=== PATIENT | male | born 1975 | race Caucasian/White ===

== ENCOUNTER 2022-04-05 16:47 | Inpatient (IN) ==
[2022-04-05] MEDS ORDERED: dilTIAZem HCl 5 MG/ML 5 ML VIAL IV ONE (17:05)
[2022-04-05] MEDS ORDERED: dilTIAZem HCl 5 MG/ML 5 ML VIAL IV STA ×3 (17:08→19:05)
[2022-04-05] MEDS ORDERED: STAT IV Infusion **Titration per Protocol STA (17:08)
--- NOTE | 2022-04-05 17:16 | Emergency Department Note ---
History of Present Illness General Chief complaint: Referred by Doctor Stated complaint: REF BY KATELYN MARTINEZ Time Seen by Provider: 04/05/22 16:54 Source: patient History of Present Illness Provider complaint: Rapid heart rate Onset (ago): unknown Location: chest Pain Consistency: + constant Quality: + other (Tachycardic) Relieved By: + none Exacerbated By: + none Associated symptoms: no chest pain, no cough, no fever/chills, no headaches, no nausea/vomiting, no shortness of breath or no syncope This is a 46-year-old male with history of hypertension presenting with new onset atrial fibrillation. He was at his doctor's office today for routine checkup and was found to have A. fib with RVR and sent here for evaluation. He is completely asymptomatic. He denies any chest discomfort or pain, shortness of breath, lightheadedness or palpitations. He states that he had COVID about a month ago but his symptoms were mild with only a cough and they resolved completely. It was the third time he had COVID-19. He denies any fever, current cough or cold symptoms, abdominal pain, vomiting, diarrhea, leg swelling or pain or urinary symptoms. Allergies Allergy/AdvReac Type Severity Reaction Status Date / Time No Known Allergies Allergy Unverified 05/06/15 12:32 Past Med/Surg History Medical History Hypertension Social History Smoking Status: Never smoker Feels Safe at Home: Yes Review of Systems See HPI for pertinent positives & negatives. and A total of 10 systems reviewed and were otherwise negative Physical Exam Vital Signs Vital Signs - 24 hr 04/05/22 16:48 04/05/22 17:02 04/05/22 17:55 Temperature 36.6 C Temperature Source Temporal Artery Scan Pulse Rate 86 Pulse Rate [Apical] 190 H 150 H Pulse Rhythm [Apical] Irregular Irregular Respiratory Rate 20 20 Respiratory Effort / Characteristics Non-Labored Spontaneous Non-Labored Spontaneous Respiratory Depth Normal Normal Respiratory Pattern Regular Regular Blood Pressure 151/90 H Blood Pressure [Right Arm] 129/92 Blood Pressure Mean 110 Blood Pressure Mean [Right Arm] 104 Blood Pressure Position [Right Arm] Lying Pulse Oximetry 99 95 Oxygen Delivery Method Room Air Room Air Sepsis Recent Fever Within 48 Hours No Sepsis New/Unexplained Change in Mental Status No Sepsis Action Taken by Nursing No Action Required 04/05/22 18:20 04/05/22 18:46 Temperature Temperature Source Pulse Rate Pulse Rate [Apical] 138 H 141 H Pulse Rhythm [Apical] Irregular Irregular Respiratory Rate 20 20 Respiratory Effort / Characteristics Non-Labored Spontaneous Non-Labored Spontaneous Respiratory Depth Normal Normal Respiratory Pattern Regular Blood Pressure Blood Pressure [Right Arm] 129/84 115/89 Blood Pressure Mean Blood Pressure Mean [Right Arm] 99 97 Blood Pressure Position [Right Arm] Pulse Oximetry 95 94 Oxygen Delivery Method Room Air Room Air Sepsis Recent Fever Within 48 Hours Sepsis New/Unexplained Change in Mental Status Sepsis Action Taken by Nursing Constitutional: Vital signs reviewed. Eyes: Pupils are equal round reactive to light. Conjunctiva are noninjected. ENT: Pharynx is clear without erythema or exudate. Mucous membranes are moist. Neck supple without meningeal signs. Respiratory: Clear to auscultation bilaterally. Breath sounds are equal bilaterally. Cardiovascular: Tachycardic. Heart rate 174 GI: Soft, nondistended and nontender. Bowel sounds are present. Musculoskeletal: No peripheral edema. No lower extremity tenderness. Integumentary: No cyanosis. or jaundice. Neurological: The patient is awake and alert. No focal deficits. Psychiatric: Normal affect. Not anxious appearing. Course Administered Medications Diltiazem HCl 125 mg/ Dextrose 125 mls @ 15 mls/hr IV .[id number] [facility]; Protocol Stop: 05/05/22 17:14 Last Titration: 04/05/22 18:46 Dose: 15 mg/hr, 15 mls/hr Documented by: [id number] Cosigned by: [id number] Titration: 04/05/22 18:15 Dose: 10 mg/hr, 10 mls/hr Documented by: [id number] Cosigned by: [id number] Admin: 04/05/22 17:49 Dose: 5 mg/hr, 5 mls/hr Documented by: [id number] Cosigned by: [id number] Discontinued Medications Diltiazem HCl (Diltiazem Hcl 5 Mg/Ml 5 Ml Vial) Confirm Administered Dose 25 mg IV .STK-MED ONE Stop: 04/05/22 17:06 Last Admin: 04/05/22 17:11 Dose: 10 mg Documented by: [id number] Cosigned by: [id number] Diltiazem HCl (Diltiazem Hcl 5 Mg/Ml 5 Ml Vial) 10 mg IV NOW STA Stop: 04/05/22 17:09 Last Admin: 04/05/22 17:11 Dose: Not Given Documented by: [id number] Diltiazem HCl (Diltiazem Hcl 5 Mg/Ml 5 Ml Vial) 10 mg IV NOW STA Stop: 04/05/22 17:53 Last Admin: 04/05/22 17:53 Dose: 10 mg Documented by: [id number] Cosigned by: [id number] Miscellaneous (Stat Iv Infusion Titration Per Protocol) 1 ea N/A NOW STA Stop: 04/05/22 17:09 Last Admin: 04/05/22 18:16 Dose: Not Given Documented by: [id number] Critical Care Time Critical Care Time: Yes Total Critical Care Time: 40 I have personally spent approximately 40 minutes of critical care time in the direct management of this patient. This includes bedside care, interpretation of diagnostic studies, and testing, discussion with consultants, patient, and family members, and other required patient management activities. These minutes are in excess of all separately billable procedures. Medical Decision Making Differential Diagnosis Dysrhythmia, atrial fibrillation, A. fib with RVR, metabolic derangement, electrolyte abnormality, ACS Medical Records Attestation: I reviewed the patient's medical records. I did perform a limited focused review of portions of the patient's old chart on the electronic medical record. The patient has had no recent pertinent visits to this hospital. Home Medications Current Medication List: was personally reviewed by me Laboratory Data Attestation: I reviewed the patient's lab results. Result diagrams: 04/05/22 17:05 04/05/22 18:20 Lab Results 04/05/22 04/05/22 04/05/22 Range/Units 15:03 17:05 17:05 WBC 9.53 (4.8-10.8) K/uL RBC 4.46 L (4.7-6.1) M/uL Hgb 14.0 (14.0-18.0) g/dL Hct 40.8 L (42-52) % MCV 91.5 (80-100) fL MCH 31.4 (25-34) pg MCHC 34.3 (32-36) g/dL RDW Std Deviation 41.8 (36.4-46.3) fL RDW Coeff of Gerardo 12.4 (11.5-14.5) % Plt Count 140 (130-400) K/uL MPV 10.5 H (7.4-10.4) fL Immature Gran % (Auto) 0.2 % Neut % (Auto) 63.3 % Lymph % (Auto) 25.8 % [place] % (Auto) 8.3 % Eos % (Auto) 2.2 % Baso % (Auto) 0.2 % Neut # (Auto) 6.03 (1.4-6.5) K/uL Lymph # (Auto) 2.46 (1.2-3.4) K/uL [place] # (Auto) 0.79 H (0.11-0.59) K/uL Eos # (Auto) 0.21 (0-0.5) K/uL Baso # (Auto) 0.02 (0-0.2) K/uL Immature Gran # (Auto) 0.02 (0.00-0.02) K/uL Sodium 134 L (136-145) mmol/L Potassium TNP Chloride 103 (98-107) mmol/L Carbon Dioxide 23 (21-32) mmol/L Anion Gap 8 (3-11) BUN 10 (6-23) mg/dl Creatinine 0.76 (0.6-1.4) mg/dl Est Cr Clr Drug Dosing 164.4 ml/min Est GFR ( Amer) 125.0 ml/min Est GFR (Non-Af Amer) 107.9 ml/min BUN/Creatinine Ratio 13.2 (10-20) Glucose 92 (70-99(Fasting)) mg/dl Calcium 9.1 (8.5-10.1) mg/dl Magnesium 1.9 (1.7-2.4) mg/dl Total Bilirubin 0.9 (0.2-1.0) mg/dl AST TNP ALT 42 (7-52) U/L Alkaline Phosphatase 67 (34-104) U/L Troponin I High Sens 11.1 (0-20) pg/ml Total Protein 7.5 (6.0-8.3) gm/dl Albumin 4.1 (3.4-5.0) gm/dl Globulin 3.4 (2.5-4.0) gm/dl Albumin/Globulin Ratio 1.2 (0.9-2) TSH (0.300-4.500) uIu/ml SARS-CoV-2, RNA, NAAT NEGATIVE (NEGATIVE) 04/05/22 04/05/22 Range/Units 17:05 18:20 WBC (4.8-10.8) K/uL RBC (4.7-6.1) M/uL Hgb (14.0-18.0) g/dL Hct (42-52) % MCV (80-100) fL MCH (25-34) pg MCHC (32-36) g/dL RDW Std Deviation (36.4-46.3) fL RDW Coeff of Gerardo (11.5-14.5) % Plt Count (130-400) K/uL MPV (7.4-10.4) fL Immature Gran % (Auto) % Neut % (Auto) % Lymph % (Auto) % [place] % (Auto) % Eos % (Auto) % Baso % (Auto) % Neut # (Auto) (1.4-6.5) K/uL Lymph # (Auto) (1.2-3.4) K/uL [place] # (Auto) (0.11-0.59) K/uL Eos # (Auto) (0-0.5) K/uL Baso # (Auto) (0-0.2) K/uL Immature Gran # (Auto) (0.00-0.02) K/uL Sodium (136-145) mmol/L Potassium 3.8 Chloride (98-107) mmol/L Carbon Dioxide (21-32) mmol/L Anion Gap (3-11) BUN (6-23) mg/dl Creatinine (0.6-1.4) mg/dl Est Cr Clr Drug Dosing ml/min Est GFR ( Amer) ml/min Est GFR (Non-Af Amer) ml/min BUN/Creatinine Ratio (10-20) Glucose (70-99(Fasting)) mg/dl Calcium (8.5-10.1) mg/dl Magnesium (1.7-2.4) mg/dl Total Bilirubin (0.2-1.0) mg/dl AST 33 ALT (7-52) U/L Alkaline Phosphatase (34-104) U/L Troponin I High Sens (0-20) pg/ml Total Protein (6.0-8.3) gm/dl Albumin (3.4-5.0) gm/dl Globulin (2.5-4.0) gm/dl Albumin/Globulin Ratio (0.9-2) TSH 1.830 (0.300-4.500) uIu/ml SARS-CoV-2, RNA, NAAT (NEGATIVE) Imaging Data Radiologist's Impression: Chest X-Ray 04/05/22 17:08 XR chest 1V portable CLINICAL HISTORY: Dysrhythmia COMPARISON STUDY: No previous studies for comparison. FINDINGS: Lung volumes are normal. Lungs are clear. There is no pneumothorax or pleural effusion. There is moderate enlargement of the cardiac silhouette. Mediastinal contours are normal. There is no evidence for pulmonary edema. IMPRESSION: No acute cardiopulmonary findings. Moderate enlargement of the cardiac silhouette. ACT 112: Negative or not required by law. Electronically signed by: Robson Morrow M.D. 04/05/2022 5:33 PM ECG Data Attestation: I personally reviewed and interpreted this ECG as follows: Indication: + tachycardia Rate (beats per minute): 164 Rhythm: + atrial fibrillation ECG Intervals/blocks: + Incomplete right bundle branch block ECG ST segments: + Nonspecific ST abnormalities ECG Findings: + PVCs Comparison ECG Date: no prior available MDM Narrative I did evaluate the patient as noted above. The patient is asymptomatic but he is coming in with new onset atrial fibrillation with RVR. His heart rate has been up to 190 here. IV access was established. I did place an order for con tinuous cardiac monitoring. The monitor showed atrial fibrillation with RVR at a rate of 164. I did order and personally review the patient's 12-lead EKG as described above. He has A. fib with an RVR with nonspecific ST-T wave changes. I did order and personally reviewed the images of the patient's chest x-ray as described above. Chest x-ray is unremarkable. I did order and review the patient's blood work as noted in the electronic medical record. CBC is unremarkable without leukocytosis or anemia. Electrolytes demonstrate a sodium of 134 but are otherwise unremarkable. Troponin is negative. TSH is within normal limits. Screening for COVID is negative. I did treat the patient with a bolus of Cardizem IV. He was then started on a continuous drip of Cardizem IV. His heart rate did improve significantly but he continued to have tachycardia and was given 2 more boluses of Cardizem IV. He will be hospitalized for further care and evaluation. I did discuss case with the hospitalist and gearcase assembler. He will require further evaluation including cardiology consultation as well as echocardiogram. [id number] 2 score is currently 1 and anticoagulation will be deferred to the inpatient team. Resident Physician Supervision Note: I did perform an independent evaluation and examination of this patient as described. I also saw this patient in conjunction with the resident, Dr. Diaz, and guided management for the patient. Impression & Plan Atrial fibrillation with rapid ventricular response, New onset a-fib Discharge Plan Visit Data Chief Complaint: Referred by Doctor Stated Complaint: REF BY KATELYN MARTINEZ ED Provider: Rohit Rodriguez ED Midlevel Provider: Yamilet Diaz Discharge Problem: Atrial fibrillation with rapid ventricular response, New onset a-fib Forms Stand Alone Forms: [facility] Referrals Referrals: Yuki Correia MD [Primary Care Provider] -
--- NOTE | 2022-04-05 17:34 | XRay Report ---
XR chest 1V portable CLINICAL HISTORY: Dysrhythmia COMPARISON STUDY: No previous studies for comparison. FINDINGS: Lung volumes are normal. Lungs are clear. There is no pneumothorax or pleural effusion. The re is moderate enlargement of the cardiac silhouette. Mediastinal contours are normal. There is no ev idence for pulmonary edema. IMPRESSION: No acute cardiopulmonary findings. Moderate enlargement of the cardiac silhouette. ACT 112: Negative or not required by law. Electronically signed by: Robson Morrow M.D. 04/05/2022 5:33 PM
[2022-04-05 17:36] LABS: Basophils # (auto) 0.02 K/uL (0-0.2); Basophils % (auto) 0.2 %; Eosinophils # (auto) 0.21 K/uL (0-0.5); Eosinophils % (auto) 2.2 %; Hematocrit (blood only) 40.8 % (42-52); Immature Granulocytes # (auto) 0.02 K/uL (0.00-0.02); Immature Granulocytes % (auto) 0.2 %; Lymphocytes # (auto) 2.46 K/uL (1.2-3.4); Lymphocytes % (auto) 25.8 %; Mean Corpuscular Hemoglobin 31.4 pg (25-34); Mean Corpuscular Hgb Conc 34.3 g/dL (32-36); Mean Corpuscular Volume 91.5 fL (80-100); Mean Platelet Volume 10.5 fL (7.4-10.4); Monocytes # (auto) 0.79 K/uL (0.11-0.59); Monocytes % (auto) 8.3 %; Neutrophils # (auto) 6.03 K/uL (1.4-6.5); Neutrophils % (auto) 63.3 %; Platelet Count 140 K/uL (130-400); RDW Coefficient of Variation 12.4 % (11.5-14.5); RDW Standard Deviation 41.8 fL (36.4-46.3); Red Blood Count 4.46 M/uL (4.7-6.1); White Blood Count 9.53 K/uL (4.8-10.8)
[2022-04-05] MEDS: dilTIAZem HCL 125 MG in DEXTROSE 5% 100 ML IV SCH (17:49)
[2022-04-05 18:13] LABS: Alanine Aminotransferase 42 U/L (7-52); Albumin Globulin Ratio 1.2 (0.9-2); Albumin Level 4.1 gm/dl (3.4-5.0); Alkaline Phosphatase 67 U/L (34-104); Anion Gap 8 (3-11); BUN Creatinine Ratio 13.2 (10-20); Bilirubin,Total 0.9 mg/dl (0.2-1.0); Blood Urea Nitrogen 10 mg/dl (6-23); Calcium 9.1 mg/dl (8.5-10.1); Carbon Dioxide 23 mmol/L (21-32); Chloride 103 mmol/L (98-107); Creatinine Clr Calc Pharmacy 164.4 ml/min; Est GFR (Non-African American) 107.9 ml/min; Globulin 3.4 gm/dl (2.5-4.0); Glucose 92 mg/dl (70-99(Fasting)); Magnesium 1.9 mg/dl (1.7-2.4); Sodium 134 mmol/L (136-145); Total Protein 7.5 gm/dl (6.0-8.3)
[2022-04-05 18:15] LABS: Troponin I High Sensitivity 11.1 pg/ml (0-20)
[2022-04-05 18:52] LABS: Potassium 3.8 mmol/L (3.5-5.1)
[2022-04-05] MEDS ORDERED: POTASSIUM CHLORIDE CRTAB 20 MEQ TABCR PO STA (19:05)
[2022-04-05] MEDS ORDERED: LACTATED RINGER'S 1,000 ML IV ONE (19:06)
[2022-04-05] MEDS ORDERED: METOPROLOL TARTRATE 25 MG TAB PO STA (19:07)
[2022-04-05] MEDS ORDERED: MAGNESIUM SULFATE / D5W 1 GM/100 ML BAG IV ONE (19:15)
[2022-04-05 19:43] LABS: Partial Thromboplastin Ratio 0.9; Partial Thromboplastin Time 24.9 Seconds (21.0-31.0)
--- NOTE | 2022-04-05 19:59 | History & Physical Report ---
Date of Service April 05, 2022 Assessment & Plan (1) New onset a-fib: Plan: ? Alcohol abuse as precipitant ? Underlying LIZ hypertension, stable PCU Utilize Lopressor in place of patient's Coreg for better rate control IV heparin for thromboembolic prophylaxis TTE, Cardiology consult Re: New onset A. fib Outpatient sleep study YAJAIRA S, DT precautions DVT prophylaxis. IV heparin Full code Patient requesting updates from providers. Ms. Ana Laura Roberts, contact #[phone]. Text document was generated using [employer] voice recognition software. It may contain grammatical or spelling errors. Kindly contact undersigned for clarification of any documentation item in question. History of Present Illness Chief Complaint: Abnormal heartbeat Primary Care Provider: Yuki Correia MD History obtained from patient, family, and records. Medical history significant for hypertension, prolonged QT syndrome, daily alcohol intake. Patient started by PCP on lisinopril for additional blood pressure control a few months ago. A month after taking medication, patient developed dry cough symptoms described as a tickle in the throat. Patient did not take lisinopril this morning prior to going to PCPs office for follow-up visit. Lisinopril switched to losartan. Heartbeat noted to be irregular on auscultation by provider. Patient denies chest pain, SOB. No unusual stress at home. Daily alcohol intake, occasionally heavy on the weekends. Snoring during sleep as per with occasional apneic episodes. Outpatient EKG showed A. fib. Patient directed to ER for evaluation of abnormal heartbeat. IV Cardizem infusion initiated at the ER. 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 Allergies Allergy/AdvReac Type Severity Reaction Status Date / Time lisinopril AdvReac Intermediate Cough Verified 04/05/22 19:26 Home Medications Medication Instructions Recorded Confirmed Type carvedilol 3.125 mg tablet 3.125 mg PO BID 04/05/22 04/05/22 History cholecalciferol (vitamin D3) 25 0 mcg PO DAILY 04/05/22 04/05/22 History mcg (1,000 unit) capsule (Vitamin D3) hydrochlorothiazide 25 mg tablet 25 mg PO DAILY 04/05/22 04/05/22 History losartan 25 mg tablet 25 mg PO DAILY 04/05/22 04/05/22 History vitamin E 400 unit capsule 0 unit PO DAILY 04/05/22 04/05/22 History Past Med/Surg History Medical History Hypertension Social History Smoking Status: Never smoker Hx Alcohol Use: Yes Alcohol type: beer Hx Substance Use: No Preferred Language: [place] Communication Ability: Effective Emergency Department Director Required: No Beliefs That Will Affect Care: None Current Living Situation: Spouse Other Information That Helps Us Care for You: No Feels Safe at Home: Yes Safety Concerns: Feels Safe At This Time Assistive Devices: None Review of Systems Review of Systems: As per HPI, all other systems reviewed and negative Physical Exam Physical Exam: GENERAL: Comfortable, pleasant, morbidly obese, no respiratory distress SKIN: Normal color, warm HEENT: [place] palpebral conjunctivae, no ptosis, moist buccal mucosa NECK : Supple, short neck no tenderness CHEST : CTA, no tenderness HEART : Irregular, no obvious murmurs ABDOMEN: Some distention, nontender EXTREMITIES : Minimal LE swelling without tenderness, no other conspicuous deformities noted NEUROLOGIC : Coherent, no facial asymmetry, no other gross focality Results & Data Results & Data ([facility]) Vital Signs (Past 12 Hours) Vital Signs Temp Pulse Pulse Resp BP BP Pulse Ox 04/05/22 18:46 141 H 20 115/89 94 04/05/22 18:20 138 H 20 129/84 95 04/05/22 17:55 150 H 20 129/92 95 04/05/22 17:02 190 H 04/05/22 16:48 36.6 C 86 20 151/90 H 99 Laboratory Results Laboratory Results WBC 9.53 K/uL (4.8-10.8) 04/05/22 17:05 RBC 4.46 M/uL (4.7-6.1) L 04/05/22 17:05 Hgb 14.0 g/dL (14.0-18.0) 04/05/22 17:05 Hct 40.8 % (42-52) L 04/05/22 17:05 MCV 91.5 fL (80-100) 04/05/22 17:05 MCH 31.4 pg (25-34) 04/05/22 17:05 MCHC 34.3 g/dL (32-36) 04/05/22 17:05 RDW Std Deviation 41.8 fL (36.4-46.3) 04/05/22 17:05 RDW Coeff of Gerardo 12.4 % (11.5-14.5) 04/05/22 17:05 Plt Count 140 K/uL (130-400) 04/05/22 17:05 MPV 10.5 fL (7.4-10.4) H 04/05/22 17:05 Immature Gran % (Auto) 0.2 % 04/05/22 17:05 Neut % (Auto) 63.3 % 04/05/22 17:05 Lymph % (Auto) 25.8 % 04/05/22 17:05 [place] % (Auto) 8.3 % 04/05/22 17:05 Eos % (Auto) 2.2 % 04/05/22 17:05 Baso % (Auto) 0.2 % 04/05/22 17:05 Neut # (Auto) 6.03 K/uL (1.4-6.5) 04/05/22 17:05 Lymph # (Auto) 2.46 K/uL (1.2-3.4) 04/05/22 17:05 [place] # (Auto) 0.79 K/uL (0.11-0.59) H 04/05/22 17:05 Eos # (Auto) 0.21 K/uL (0-0.5) 04/05/22 17:05 Baso # (Auto) 0.02 K/uL (0-0.2) 04/05/22 17:05 Immature Gran # (Auto) 0.02 K/uL (0.00-0.02) 04/05/22 17:05 APTT 24.9 Seconds (21.0-31.0) 04/05/22 18:21 PTT Ratio 0.9 04/05/22 18:21 Sodium 134 mmol/L (136-145) L 04/05/22 17:05 Potassium 3.8 mmol/L (3.5-5.1) 04/05/22 18:20 Chloride 103 mmol/L (98-107) 04/05/22 17:05 Carbon Dioxide 23 mmol/L (21-32) 04/05/22 17:05 Anion Gap 8 (3-11) 04/05/22 17:05 BUN 10 mg/dl (6-23) 04/05/22 17:05 Creatinine 0.76 mg/dl (0.6-1.4) 04/05/22 17:05 Est Cr Clr Drug Dosing 164.4 ml/min 04/05/22 17:05 Est GFR ( Amer) 125.0 ml/min 04/05/22 17:05 Est GFR (Non-Af Amer) 107.9 ml/min 04/05/22 17:05 BUN/Creatinine Ratio 13.2 (10-20) 04/05/22 17:05 Glucose 92 mg/dl (70-99(Fasting)) 04/05/22 17:05 Calcium 9.1 mg/dl (8.5-10.1) 04/05/22 17:05 Magnesium 1.9 mg/dl (1.7-2.4) 04/05/22 17:05 Total Bilirubin 0.9 mg/dl (0.2-1.0) 04/05/22 17:05 AST 33 U/L (13-39) 04/05/22 18:20 ALT 42 U/L (7-52) 04/05/22 17:05 Alkaline Phosphatase 67 U/L (34-104) 04/05/22 17:05 Troponin I High Sens 11.1 pg/ml (0-20) 04/05/22 17:05 Total Protein 7.5 gm/dl (6.0-8.3) 04/05/22 17:05 Albumin 4.1 gm/dl (3.4-5.0) 04/05/22 17:05 Globulin 3.4 gm/dl (2.5-4.0) 04/05/22 17:05 Albumin/Globulin Ratio 1.2 (0.9-2) 04/05/22 17:05 TSH 1.830 uIu/ml (0.300-4.500) 04/05/22 17:05 SARS-CoV-2, RNA, NAAT NEGATIVE (NEGATIVE) 04/05/22 15:03 Impressions Chest X-Ray 04/05/22 17:08 XR chest 1V portable CLINICAL HISTORY: Dysrhythmia COMPARISON STUDY: No previous studies for comparison. FINDINGS: Lung volumes are normal. Lungs are clear. There is no pneumothorax or pleural effusion. There is moderate enlargement of the cardiac silhouette. Mediastinal contours are normal. There is no evidence for pulmonary edema. IMPRESSION: No acute cardiopulmonary findings. Moderate enlargement of the cardiac silhouette. ACT 112: Negative or not required by law. Electronically signed by: Robson Morrow M.D. 04/05/2022 5:33 PM Diagnostic Findings EKG as per my interpretation : Rate 160, A. fib, normal axis, incomplete RV, with abnormalities lateral leads, PVCs Code Status & VTE Plan VTE Prophylaxis Plan VTE Prophylaxis will be ordered: Yes
[2022-04-05] MEDS ORDERED: PROMETHAZINE HCL 12.5 MG in SODIUM CHLORIDE 0.9% 50 ML IV PRN (22:03)
[2022-04-05] MEDS ORDERED: LORazepam 0.5 MG in SYRINGE 0.25 ML IV PRN (22:03)
[2022-04-05] MEDS ORDERED: oxyCODONE HCL IR 5 MG TAB (IMMEDIATE RELEASE) PO PRN (22:03)
[2022-04-05] MEDS ORDERED: NITROGLYCERIN SL 0.4 MG/TAB TAB SL PRN (22:03)
[2022-04-05] MEDS ORDERED: ACETAMINOPHEN 325 MG TAB PO PRN (22:03)
[2022-04-05] MEDS ORDERED: THIAMINE HCL 100 MG in SYRINGE 9 ML IV STA (22:03)
[2022-04-05] MEDS: HEPARIN SODIUM/DEXTROSE 25,000 UNITS/500 ML BAG IV SCH (22:05)
[2022-04-05] MEDS: Heparin IV Adult Wt-Based Standard *NO* Bolus Protocol IV SCH ×2 (22:32)
[2022-04-06] MEDS: dilTIAZem HCL 125 MG in DEXTROSE 5% 100 ML IV SCH (02:13)
[2022-04-06 04:38] LABS: Basophils # (auto) 0.03 K/uL (0-0.2); Basophils % (auto) 0.3 %; Eosinophils % (auto) 3.2 %; Hematocrit (blood only) 37.6 % (42-52); Hemoglobin 12.7 g/dL (14.0-18.0); Immature Granulocytes # (auto) 0.01 K/uL (0.00-0.02); Immature Granulocytes % (auto) 0.1 %; Lymphocytes # (auto) 3.48 K/uL (1.2-3.4); Lymphocytes % (auto) 37.7 %; Mean Corpuscular Hemoglobin 31.3 pg (25-34); Mean Corpuscular Hgb Conc 33.8 g/dL (32-36); Mean Corpuscular Volume 92.6 fL (80-100); Monocytes % (auto) 5.4 %; Neutrophils # (auto) 4.92 K/uL (1.4-6.5); Neutrophils % (auto) 53.3 %; Platelet Count 121 K/uL (130-400); RDW Coefficient of Variation 12.5 % (11.5-14.5); RDW Standard Deviation 42.2 fL (36.4-46.3); Red Blood Count 4.06 M/uL (4.7-6.1); White Blood Count 9.24 K/uL (4.8-10.8)
[2022-04-06 04:53] LABS: Partial Thromboplastin Ratio 1.3; Partial Thromboplastin Time 35.3 Seconds (21.0-31.0)
[2022-04-06 04:57] LABS: BUN Creatinine Ratio 13.4 (10-20); Calcium 8.6 mg/dl (8.5-10.1); Creatinine Clr Calc Pharmacy 153.6 ml/min; Est GFR (African American) 121.2 ml/min; Est GFR (Non-African American) 104.6 ml/min; Potassium 3.9 mmol/L (3.5-5.1)
[2022-04-06] MEDS ORDERED: HEPARIN SOD (PORCINE) 1000 UNIT/ML IV ONE (05:15)
[2022-04-06] MEDS: THIAMINE HCL 100 MG TAB PO SCH (08:14)
[2022-04-06] MEDS: FOLIC ACID 1 MG TAB PO SCH (08:15)
[2022-04-06] MEDS: MULTIVITAMIN TAB PO SCH (08:15)
[2022-04-06] MEDS: LOSARTAN POTASSIUM 25 MG TAB PO SCH (08:15)
[2022-04-06] MEDS ORDERED: METOPROLOL TARTRATE 25 MG TAB PO SCH (09:00)
[2022-04-06] MEDS ORDERED: METOPROLOL TARTRATE 25 MG TAB PO ONE (09:30)
[2022-04-06] MEDS ORDERED: METOPROLOL TARTRATE 1 MG/ML VIAL IV PRN (09:32)
--- NOTE | 2022-04-06 09:32 | Cardiology Consultation ---
Date of Consultation April 06, 2022 Assessment & Plan (1) Atrial fibrillation with rapid ventricular response: (2) Hypertension: (3) Work related injury: (4) New onset a-fib: The patient is currently in a rate controlled atrial fibrillation and is completely asymptomatic. I am uncertain as to how long the patient was in the atrial fibrillation could have been days or weeks. Therefore, I think that we need to maintain full anticoagulation and if we proceed to rhythm control by cardioversion and/or medications then I think he should have a SID completed to exclude left atrial appendage thrombus. If there is no contraindication by SID then the patient can have a cardioversion before discharge. If he is not easily cardioverted then he will have to be started on an antiarrhythmic medication to maintain sinus rhythm. History of Present Illness Attending Physician: Kaiser Navas MD History of Present Illness This is a 46-year-old male patient with no prior history of heart disease. He went into see his primary care physician due to a cough that he felt was from his lisinopril. While he was there he was noted to have an irregular fast heart rate and further investigation revealed atrial fibrillation with RVR. The patient was completely asymptomatic in regard to this arrhythmia. He has had no recent shortness of breath and denies orthopnea. No chest pain. No dizziness or lightheadedness.He is a non-smoker. No previous history of diabetes. He drinks a case of beer per week. His has been encouraging him to be tested for sleep apnea due to snoring and tiredness throughout the day. 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 Allergies Allergy/AdvReac Type Severity Reaction Status Date / Time lisinopril AdvReac Intermediate Cough Verified 04/05/22 19:26 Home Medications Medication Instructions Recorded Confirmed Type carvedilol 3.125 mg tablet 3.125 mg PO BID 04/05/22 04/05/22 History cholecalciferol (vitamin D3) 25 0 mcg PO DAILY 04/05/22 04/05/22 History mcg (1,000 unit) capsule (Vitamin D3) hydrochlorothiazide 25 mg tablet 25 mg PO DAILY 04/05/22 04/05/22 History losartan 25 mg tablet 25 mg PO DAILY 04/05/22 04/05/22 History vitamin E 400 unit capsule 0 unit PO DAILY 04/05/22 04/05/22 History Patient History Medical History Hypertension Social History Smoking Status: Never smoker Hx Alcohol Use: Yes Alcohol type: beer Hx Substance Use: No Preferred Language: Slovenian Communication Ability: Effective Director Of Scientific Research Required: No Beliefs That Will Affect Care: None Current Living Situation: Spouse Other Information That Helps Us Care for You: No Feels Safe at Home: Yes Safety Concerns: Feels Safe At This Time Assistive Devices: None Review of Systems Review of Systems: Review of Systems: See HPI for pertinent positives. All other 10 point review of systems are negative. Physical Exam Physical Exam: General: no acute distress and stated age Head: normocephalic, no masses, lesions, tenderness or abnormalities Eyes: conjunctiva are pink and non-injected, sclera clear Neck: supple, no adenopathy, no bruits, normal jugular venous pulse, no hepatojugular reflux Chest: normal shape and normal respiratory effort Lungs: clear to auscultation and percussion Cardiac Exam: - regular rate & rhythm, no murmurs gallops or rubs - normal S1, normal S2 Pulses: 2(+) throughout Abdomen: abdomen soft, non-tender, no abnormal masses and no hepatosplenomegaly Musculoskeletal: no gait disturbance, no joint inflammation, no deforming arthritis Extremities: no edema and no cyanosis Neuro: grossly normal exam Results & Data ([facility]) Vital Signs (Past 12 Hours) Vital Signs Temp Pulse Pulse Resp BP BP BP 04/06/22 07:36 36.7 C 87 20 142/99 H 04/06/22 04:29 36.8 C 94 H 16 137/89 04/05/22 22:05 37.4 C 112 H 99 H 18 130/90 04/05/22 21:30 103 H 101/81 Pulse Ox 04/06/22 07:36 97 04/06/22 04:29 97 04/05/22 22:05 97 04/05/22 21:30 96 Laboratory Results Laboratory Results - last 24 hr 04/05/22 04/05/22 04/05/22 15:03 17:05 17:05 WBC 9.53 RBC 4.46 L Hgb 14.0 Hct 40.8 L MCV 91.5 MCH 31.4 MCHC 34.3 RDW Std Deviation 41.8 RDW Coeff of Gerardo 12.4 Plt Count 140 MPV 10.5 H Immature Gran % (Auto) 0.2 Neut % (Auto) 63.3 Lymph % (Auto) 25.8 [place] % (Auto) 8.3 Eos % (Auto) 2.2 Baso % (Auto) 0.2 Neut # (Auto) 6.03 Lymph # (Auto) 2.46 [place] # (Auto) 0.79 H Eos # (Auto) 0.21 Baso # (Auto) 0.02 Immature Gran # (Auto) 0.02 APTT PTT Ratio Sodium 134 L Potassium TNP Chloride 103 Carbon Dioxide 23 Anion Gap 8 BUN 10 Creatinine 0.76 Est Cr Clr Drug Dosing 164.4 Est GFR ( Amer) 125.0 Est GFR (Non-Af Amer) 107.9 BUN/Creatinine Ratio 13.2 Glucose 92 Calcium 9.1 Magnesium 1.9 Total Bilirubin 0.9 AST TNP ALT 42 Alkaline Phosphatase 67 Troponin I High Sens 11.1 Total Protein 7.5 Albumin 4.1 Globulin 3.4 Albumin/Globulin Ratio 1.2 TSH SARS-CoV-2, RNA, NAAT NEGATIVE 04/05/22 04/05/22 04/05/22 17:05 18:20 18:21 WBC RBC Hgb Hct MCV MCH MCHC RDW Std Deviation RDW Coeff of Gerardo Plt Count MPV Immature Gran % (Auto) Neut % (Auto) Lymph % (Auto) [place] % (Auto) Eos % (Auto) Baso % (Auto) Neut # (Auto) Lymph # (Auto) [place] # (Auto) Eos # (Auto) Baso # (Auto) Immature Gran # (Auto) APTT 24.9 PTT Ratio 0.9 Sodium Potassium 3.8 Chloride Carbon Dioxide Anion Gap BUN Creatinine Est Cr Clr Drug Dosing Est GFR ( Amer) Est GFR (Non-Af Amer) BUN/Creatinine Ratio Glucose Calcium Magnesium Total Bilirubin AST 33 ALT Alkaline Phosphatase Troponin I High Sens Total Protein Albumin Globulin Albumin/Globulin Ratio TSH 1.830 SARS-CoV-2, RNA, NAAT 04/06/22 04/06/22 04/06/22 04:14 04:14 04:14 WBC 9.24 RBC 4.06 L Hgb 12.7 L Hct 37.6 L MCV 92.6 MCH 31.3 MCHC 33.8 RDW Std Deviation 42.2 RDW Coeff of Gerardo 12.5 Plt Count 121 L MPV 10.0 Immature Gran % (Auto) 0.1 Neut % (Auto) 53.3 Lymph % (Auto) 37.7 [place] % (Auto) 5.4 Eos % (Auto) 3.2 Baso % (Auto) 0.3 Neut # (Auto) 4.92 Lymph # (Auto) 3.48 H [place] # (Auto) 0.50 Eos # (Auto) 0.30 Baso # (Auto) 0.03 Immature Gran # (Auto) 0.01 APTT 35.3 H PTT Ratio 1.3 Sodium 135 L Potassium 3.9 Chloride 103 Carbon Dioxide 26 Anion Gap 6 BUN 11 Creatinine 0.82 Est Cr Clr Drug Dosing 153.6 Est GFR ( Amer) 121.2 Est GFR (Non-Af Amer) 104.6 BUN/Creatinine Ratio 13.4 Glucose 103 H Calcium 8.6 Magnesium Total Bilirubin AST ALT Alkaline Phosphatase Troponin I High Sens Total Protein Albumin Globulin Albumin/Globulin Ratio TSH SARS-CoV-2, RNA, NAAT Medications Administered Current Inpatient Medications Acetaminophen (Acetaminophen 325 Mg Tab) 650 mg PO Q4H PRN PRN Reason: Pain or Fever Stop: 05/05/22 22:02 Folic Acid (Folic Acid 1 Mg Tab) 1 mg PO [facility] Stop: 05/06/22 08:59 Last Admin: 04/06/22 08:15 Dose: 1 mg Documented by: Heparin Sodium/Dextrose (Heparin Sodium/Dextrose) 25,000 units in 500 mls @ 39 mls/hr IV .[id number]; Protocol Stop: 05/05/22 20:14 Last Titration: 04/06/22 05:00 Dose: 1,950 units/hr, 39 mls/hr Documented by: Lorazepam 0.5 mg/ Syringe 0.5 mls @ 2 mls/min IV Q4H PRN PRN Reason: Anxiety Stop: 05/05/22 22:02 Promethazine HCl 12.5 mg/ (Sodium Chloride) 50.5 mls @ 202 mls/hr IV Q6H PRN PRN Reason: Nausea And Vomiting Stop: 05/05/22 22:02 Losartan Potassium (Losartan Potassium 25 Mg Tab) [facility]: 05/06/22 08:59 Last Admin: 04/06/22 08:15 Dose: 25 mg Documented by: Metoprolol Tartrate (Metoprolol Tartrate 50 Mg Tab) 50 mg PO BID [facility] Stop: 05/06/22 09:29 Multivitamins (Multivitamin Tab) [facility]: 05/06/22 08:59 Last Admin: 04/06/22 08:15 Dose: 1 tab Documented by: Nitroglycerin (Nitroglycerin Sl 0.4 Mg/Tab Tab) 0.4 mg SL UD PRN PRN Reason: Chest Pain Stop: 05/05/22 22:02 Oxycodone HCl (Oxycodone Hcl Ir 5 Mg Tab (Immediate Release)) 5 mg PO Q4H PRN PRN Reason: Pain Stop: 04/19/22 22:02 Thiamine HCl (Thiamine Hcl 100 Mg Tab) 100 mg PO [facility] Stop: 05/06/22 08:59 Last Admin: 04/06/22 08:14 Dose: 100 mg Documented by:
--- NOTE | 2022-04-06 10:32 | Hospitalist Progress Note ---
Date of Service April 06, 2022 Assessment & Plan (1) Atrial fibrillation with rapid ventricular response: (2) New onset a-fib: Plan: 1) New onset a-fib: Plan: ? Alcohol abuse as precipitant ? Underlying LIZ hypertension, stable PCU Utilize Lopressor in place of patient's Coreg for better rate control IV heparin for thromboembolic prophylaxis TTE, Cardiology consult Re: New onset A. fib Seen by cardiology, likely plan for SID, and cardioversion Outpatient sleep study YAJAIRA S, DT precautions DVT prophylaxis. IV heparin Full code Patient -Mrs. Ana Laura Roberts, contact #[phone]. Admission and Anticipated Discharge Date Admission Date: April 05, 2022 Subjective Patient seen in follow-up of new onset A. fib Currently laying in bed, in no acute distress, on IV heparin Denies any palpitations, chest pain, shortness of breath Also denies any abdominal pain, nausea vomiting, blood in the stool Seen by cardiology, likely plan for SID, and cardioversion Review of Systems Review of Systems: All systems reviewed & are unremarkable except as noted in Subjective Physical Exam Physical Exam: General: Obese M in NAD HEENT: NC/AT. EOMI, PERRL, moist mucous membranes Neck : supple Respiratory: CTAB, no wheezing rhonchi crackles noted CV: Irregularly irregular HR 90-100s Abdomen: soft, obese, non-tender, positive bowel sounds Musculoskeletal: Moves extremities Extremities: no LE edema Neuro: Alert oriented, answers appropriately, no facial asymmetry, moves extremities Skin: warm, dry Results & Data Results & Data [facility]) Vital Signs (Past 12 Hours) Vital Signs Temp Pulse Resp BP Pulse Ox 04/06/22 07:36 36.7 C 87 20 142/99 H 97 04/06/22 04:29 36.8 C 94 H 16 137/89 97 Laboratory Results 04/06/22 04/06/22 04/06/22 Range/Units 04:14 04:14 04:14 WBC 9.24 (4.8-10.8) K/uL RBC 4.06 L (4.7-6.1) M/uL Hgb 12.7 L (14.0-18.0) g/dL Hct 37.6 L (42-52) % MCV 92.6 (80-100) fL MCH 31.3 (25-34) pg MCHC 33.8 (32-36) g/dL RDW Std Deviation 42.2 (36.4-46.3) fL RDW Coeff of Gerardo 12.5 (11.5-14.5) % Plt Count 121 L (130-400) K/uL MPV 10.0 (7.4-10.4) fL Immature Gran % (Auto) 0.1 % Neut % (Auto) 53.3 % Lymph % (Auto) 37.7 % [place] % (Auto) 5.4 % Eos % (Auto) 3.2 % Baso % (Auto) 0.3 % Neut # (Auto) 4.92 (1.4-6.5) K/uL Lymph # (Auto) 3.48 H (1.2-3.4) K/uL [place] # (Auto) 0.50 (0.11-0.59) K/uL Eos # (Auto) 0.30 (0-0.5) K/uL Baso # (Auto) 0.03 (0-0.2) K/uL Immature Gran # (Auto) 0.01 (0.00-0.02) K/uL APTT 35.3 H (21.0-31.0) Seconds PTT Ratio 1.3 Sodium 135 L (136-145) mmol/L Potassium 3.9 Chloride 103 (98-107) mmol/L Carbon Dioxide 26 (21-32) mmol/L Anion Gap 6 (3-11) BUN 11 (6-23) mg/dl Creatinine 0.82 (0.6-1.4) mg/dl Est Cr Clr Drug Dosing 153.6 ml/min Est GFR ( Amer) 121.2 ml/min Est GFR (Non-Af Amer) 104.6 ml/min BUN/Creatinine Ratio 13.4 (10-20) Glucose 103 H (70-99(Fasting)) mg/dl Calcium 8.6 (8.5-10.1) mg/dl Magnesium (1.7-2.4) mg/dl Total Bilirubin (0.2-1.0) mg/dl AST ALT (7-52) U/L Alkaline Phosphatase (34-104) U/L Troponin I High Sens (0-20) pg/ml Total Protein (6.0-8.3) gm/dl Albumin (3.4-5.0) gm/dl Globulin (2.5-4.0) gm/dl Albumin/Globulin Ratio (0.9-2) TSH (0.300-4.500) uIu/ml SARS-CoV-2, RNA, NAAT (NEGATIVE) 04/05/22 04/05/22 04/05/22 Range/Units 18:21 18:20 17:05 WBC (4.8-10.8) K/uL RBC (4.7-6.1) M/uL Hgb (14.0-18.0) g/dL Hct (42-52) % MCV (80-100) fL MCH (25-34) pg MCHC (32-36) g/dL RDW Std Deviation (36.4-46.3) fL RDW Coeff of Gerardo (11.5-14.5) % Plt Count (130-400) K/uL MPV (7.4-10.4) fL Immature Gran % (Auto) % Neut % (Auto) % Lymph % (Auto) % [place] % (Auto) % Eos % (Auto) % Baso % (Auto) % Neut # (Auto) (1.4-6.5) K/uL Lymph # (Auto) (1.2-3.4) K/uL [place] # (Auto) (0.11-0.59) K/uL Eos # (Auto) (0-0.5) K/uL Baso # (Auto) (0-0.2) K/uL Immature Gran # (Auto) (0.00-0.02) K/uL APTT 24.9 (21.0-31.0) Seconds PTT Ratio 0.9 Sodium (136-145) mmol/L Potassium 3.8 Chloride (98-107) mmol/L Carbon Dioxide (21-32) mmol/L Anion Gap (3-11) BUN (6-23) mg/dl Creatinine (0.6-1.4) mg/dl Est Cr Clr Drug Dosing ml/min Est GFR ( Amer) ml/min Est GFR (Non-Af Amer) ml/min BUN/Creatinine Ratio (10-20) Glucose (70-99(Fasting)) mg/dl Calcium (8.5-10.1) mg/dl Magnesium (1.7-2.4) mg/dl Total Bilirubin (0.2-1.0) mg/dl AST 33 ALT (7-52) U/L Alkaline Phosphatase (34-104) U/L Troponin I High Sens (0-20) pg/ml Total Protein (6.0-8.3) gm/dl Albumin (3.4-5.0) gm/dl Globulin (2.5-4.0) gm/dl Albumin/Globulin Ratio (0.9-2) TSH 1.830 (0.300-4.500) uIu/ml SARS-CoV-2, RNA, NAAT (NEGATIVE) 04/05/22 04/05/22 04/05/22 Range/Units 17:05 17:05 15:03 WBC 9.53 (4.8-10.8) K/uL RBC 4.46 L (4.7-6.1) M/uL Hgb 14.0 (14.0-18.0) g/dL Hct 40.8 L (42-52) % MCV 91.5 (80-100) fL MCH 31.4 (25-34) pg MCHC 34.3 (32-36) g/dL RDW Std Deviation 41.8 (36.4-46.3) fL RDW Coeff of Gerardo 12.4 (11.5-14.5) % Plt Count 140 (130-400) K/uL MPV 10.5 H (7.4-10.4) fL Immature Gran % (Auto) 0.2 % Neut % (Auto) 63.3 % Lymph % (Auto) 25.8 % [place] % (Auto) 8.3 % Eos % (Auto) 2.2 % Baso % (Auto) 0.2 % Neut # (Auto) 6.03 (1.4-6.5) K/uL Lymph # (Auto) 2.46 (1.2-3.4) K/uL [place] # (Auto) 0.79 H (0.11-0.59) K/uL Eos # (Auto) 0.21 (0-0.5) K/uL Baso # (Auto) 0.02 (0-0.2) K/uL Immature Gran # (Auto) 0.02 (0.00-0.02) K/uL APTT (21.0-31.0) Seconds PTT Ratio Sodium 134 L (136-145) mmol/L Potassium TNP Chloride 103 (98-107) mmol/L Carbon Dioxide 23 (21-32) mmol/L Anion Gap 8 (3-11) BUN 10 (6-23) mg/dl Creatinine 0.76 (0.6-1.4) mg/dl Est Cr Clr Drug Dosing 164.4 ml/min Est GFR ( Amer) 125.0 ml/min Est GFR (Non-Af Amer) 107.9 ml/min BUN/Creatinine Ratio 13.2 (10-20) Glucose 92 (70-99(Fasting)) mg/dl Calcium 9.1 (8.5-10.1) mg/dl Magnesium 1.9 (1.7-2.4) mg/dl Total Bilirubin 0.9 (0.2-1.0) mg/dl AST TNP ALT 42 (7-52) U/L Alkaline Phosphatase 67 (34-104) U/L Troponin I High Sens 11.1 (0-20) pg/ml Total Protein 7.5 (6.0-8.3) gm/dl Albumin 4.1 (3.4-5.0) gm/dl Globulin 3.4 (2.5-4.0) gm/dl Albumin/Globulin Ratio 1.2 (0.9-2) TSH (0.300-4.500) uIu/ml SARS-CoV-2, RNA, NAAT NEGATIVE (NEGATIVE) Medications Administered Current Inpatient Medications Acetaminophen (Acetaminophen 325 Mg Tab) 650 mg PO Q4H PRN PRN Reason: Pain or Fever Stop: 05/05/22 22:02 Folic Acid (Folic Acid 1 Mg Tab) 1 mg PO QAM [facility] Stop: 05/06/22 08:59 Last Admin: 04/06/22 08:15 Dose: 1 mg Documented by: Heparin Sodium/Dextrose (Heparin Sodium/Dextrose) 25,000 units in 500 mls @ 39 mls/hr IV .[id number] [facility]; Protocol Stop: 05/05/22 20:14 Last Titration: 04/06/22 05:00 Dose: 1,950 units/hr, 39 mls/hr Documented by: Lorazepam 0.5 mg/ Syringe 0.5 mls @ 2 mls/min IV Q4H PRN PRN Reason: Anxiety Stop: 05/05/22 22:02 Promethazine HCl 12.5 mg/ (Sodium Chloride) 50.5 mls @ 202 mls/hr IV Q6H PRN PRN Reason: Nausea And Vomiting Stop: 05/05/22 22:02 Losartan Potassium (Losartan Potassium 25 Mg Tab) 25 mg PO [facility] Stop: 05/06/22 08:59 Last Admin: 04/06/22 08:15 Dose: 25 mg Documented by: Metoprolol Tartrate (Metoprolol Tartrate 50 Mg Tab) 50 mg PO BID [facility] Stop: 05/06/22 20:59 Metoprolol Tartrate (Metoprolol Tartrate 1 Mg/Ml Vial) 5 mg IV Q5M PRN PRN Reason: Tachycardia Stop: 05/06/22 09:31 Multivitamins (Multivitamin Tab) 1 tab PO [facility] Stop: 05/06/22 08:59 Last Admin: 04/06/22 08:15 Dose: 1 tab Documented by: Nitroglycerin (Nitroglycerin Sl 0.4 Mg/Tab Tab) 0.4 mg SL UD PRN PRN Reason: Chest Pain Stop: 05/05/22 22:02 Oxycodone HCl (Oxycodone Hcl Ir 5 Mg Tab (Immediate Release)) 5 mg PO Q4H PRN PRN Reason: Pain Stop: 04/19/22 22:02 Thiamine HCl (Thiamine Hcl 100 Mg Tab) 100 mg PO [facility] Stop: 05/06/22 08:59 Last Admin: 04/06/22 08:14 Dose: 100 mg Documented by:
[2022-04-06 11:22] LABS: Partial Thromboplastin Ratio 1.5; Partial Thromboplastin Time 41.5 Seconds (21.0-31.0)
--- NOTE | 2022-04-06 11:28 | Electrocardiogram Report ---
Test Reason : Blood Pressure : / mmHG Vent. Rate : 164 BPM Atrial Rate : 170 BPM P-R Int : 000 ms QRS Dur : 092 ms QT Int : 298 ms P-R-T Axes : 000 023 036 degrees QTc Int : 492 ms Atrial fibrillation with rapid ventricular response with premature ventricular or aberrantly conducte d complexes Incomplete right bundle branch block Possible Anterior infarct , age undetermined Abnormal ECG No previous ECGs available Confirmed by Sebastian Carvajal ([id number]) on 04/06/2022 11:28:21 AM Referred By: Yuki Correia Confirmed By:Sebastian Carvajal
[2022-04-06] MEDS: HEPARIN SODIUM/DEXTROSE 25,000 UNITS/500 ML BAG IV SCH (13:17)
[2022-04-06 18:00] LABS: Partial Thromboplastin Ratio 1.6; Partial Thromboplastin Time 42.7 Seconds (21.0-31.0)
[2022-04-06] MEDS: METOPROLOL TARTRATE 50 MG TAB PO SCH (20:48)
[2022-04-07 00:17] LABS: Partial Thromboplastin Ratio 1.7
[2022-04-07 00:27] LABS: Partial Thromboplastin Time 46.4 Seconds (21.0-31.0)
[2022-04-07] MEDS: HEPARIN SODIUM/DEXTROSE 25,000 UNITS/500 ML BAG IV SCH ×2 (01:00→13:21)
[2022-04-07 07:38] LABS: Hematocrit (blood only) 37.8 % (42-52); Hemoglobin 12.4 g/dL (14.0-18.0); Mean Corpuscular Hemoglobin 30.2 pg (25-34); Mean Corpuscular Hgb Conc 32.8 g/dL (32-36); RDW Coefficient of Variation 12.6 % (11.5-14.5); RDW Standard Deviation 42.5 fL (36.4-46.3); Red Blood Count 4.11 M/uL (4.7-6.1)
[2022-04-07 07:57] LABS: BUN Creatinine Ratio 11.5 (10-20); Calcium 8.5 mg/dl (8.5-10.1); Creatinine Clr Calc Pharmacy 162.1 ml/min; Est GFR (African American) 123.7 ml/min; Est GFR (Non-African American) 106.7 ml/min; Magnesium 2.1 mg/dl (1.7-2.4); Phosphorus 3.4 mg/dl (2.5-4.9); Potassium 3.7 mmol/L (3.5-5.1)
[2022-04-07 08:00] LABS: Mean Platelet Volume 10.2 fL (7.4-10.4); Platelet Count 93 K/uL (130-400); Platelet Estimate Decreased (Normal)
[2022-04-07] MEDS: LOSARTAN POTASSIUM 25 MG TAB PO SCH (08:02)
[2022-04-07] MEDS: FOLIC ACID 1 MG TAB PO SCH (08:02)
[2022-04-07] MEDS: METOPROLOL TARTRATE 50 MG TAB PO SCH (08:03)
[2022-04-07] MEDS: THIAMINE HCL 100 MG TAB PO SCH (08:04)
[2022-04-07] MEDS: MULTIVITAMIN TAB PO SCH (08:04)
[2022-04-07 08:06] LABS: Partial Thromboplastin Ratio 1.9
[2022-04-07 08:07] LABS: Partial Thromboplastin Time 51.5 Seconds (21.0-31.0)
--- NOTE | 2022-04-07 09:44 | Cardiology Progress Note ---
Date of Service April 07, 2022 Assessment & Plan (1) Atrial fibrillation with rapid ventricular response: (2) Hypertension: (3) Work related injury: (4) New onset a-fib: (5) Cardiomyopathy: Plan: The patient has a dilated cardiomyopathy on echocardiogram. This could be due to persistent long-term tachycardia from his atrial fibrillation or idiopathic. Either way I believe he would benefit from early rhythm control. I started him on sotalol today. He will have a SID tomorrow and if no contraindications early cardioversion. We will then continue the sotalol as well as guideline directed medications. Admission and Anticipated Discharge Date Admission Date: April 05, 2022 Subjective The patient had an uneventful night. He remains in persistent atrial fibrillation with heart rates in the 100s to the 1 teens. Review of Systems Review of Systems: Review of Systems: See HPI for pertinent positives. All other 10 point review of systems are negative. Physical Exam Physical Exam: General: no acute distress and stated age Head: normocephalic, no masses, lesions, tenderness or abnormalities Eyes: conjunctiva are pink and non-injected, sclera clear Neck: supple, no adenopathy, no bruits, normal jugular venous pulse, no hepatojugular reflux Chest: normal shape and normal respiratory effort Lungs: clear to auscultation and percussion Cardiac Exam: - irregular rate & rhythm, no murmurs gallops or rubs - normal S1, normal S2 Pulses: 2(+) throughout Abdomen: abdomen soft, non-tender, no abnormal masses and no hepatosplenomegaly Musculoskeletal: no gait disturbance, no joint inflammation, no deforming arthritis Extremities: no edema and no cyanosis Neuro: grossly normal exam Results & Data [facility]) Vital Signs (Past 12 Hours) Vital Signs Temp Pulse Pulse Resp BP BP Pulse Ox 04/07/22 07:27 110 H 04/07/22 07:23 36.7 C 111 H 16 115/43 L 94 04/07/22 04:16 36.3 C L 70 16 111/71 95 04/07/22 00:15 96 H 04/06/22 23:37 37.1 C 86 16 117/77 96 Laboratory Results Laboratory Results - last 24 hr 04/06/22 04/06/22 04/06/22 10:50 17:34 23:33 WBC RBC Hgb Hct MCV MCH MCHC RDW Std Deviation RDW Coeff of Gerardo Plt Count MPV Platelet Estimate APTT 41.5 H 42.7 H 46.4 H* PTT Ratio 1.5 1.6 1.7 Sodium Potassium Chloride Carbon Dioxide Anion Gap BUN Creatinine Est Cr Clr Drug Dosing Est GFR ( Amer) Est GFR (Non-Af Amer) BUN/Creatinine Ratio Glucose Calcium Phosphorus Magnesium 04/07/22 04/07/22 04/07/22 07:21 07:21 07:21 WBC 7.10 RBC 4.11 L Hgb 12.4 L Hct 37.8 L MCV 92.0 MCH 30.2 MCHC 32.8 RDW Std Deviation 42.5 RDW Coeff of Gerardo 12.6 Plt Count 93 L MPV 10.2 Platelet Estimate Decreased L APTT 51.5 H* PTT Ratio 1.9 Sodium 137 Potassium 3.7 Chloride 104 Carbon Dioxide 30 Anion Gap 3 BUN 9 Creatinine 0.78 Est Cr Clr Drug Dosing 162.1 Est GFR ( Amer) 123.7 Est GFR (Non-Af Amer) 106.7 BUN/Creatinine Ratio 11.5 Glucose 97 Calcium 8.5 Phosphorus 3.4 Magnesium 2.1 Diagnostic Findings Echocardiogram reveals a dilated cardiomyopathy with an estimated left ventricular ejection fraction of around 35%. Medications Administered Current Inpatient Medications Acetaminophen (Acetaminophen 325 Mg Tab) 650 mg PO Q4H PRN PRN Reason: Pain or Fever Stop: 05/05/22 22:02 Folic Acid (Folic Acid 1 Mg Tab) 1 mg PO [facility] Stop: 05/06/22 08:59 Last Admin: 04/07/22 08:02 Dose: 1 mg Documented by: Heparin Sodium/Dextrose (Heparin Sodium/Dextrose) 25,000 units in 500 mls @ 43 mls/hr IV .[id number] [facility]; Protocol Stop: 05/05/22 20:14 Last Admin: 04/07/22 01:00 Dose: 2,150 units/hr, 43 mls/hr Documented by: Lorazepam 0.5 mg/ Syringe 0.5 mls @ 2 mls/min IV Q4H PRN PRN Reason: Anxiety Stop: 05/05/22 22:02 Promethazine HCl 12.5 mg/ (Sodium Chloride) 50.5 mls @ 202 mls/hr IV Q6H PRN PRN Reason: Nausea And Vomiting Stop: 05/05/22 22:02 Losartan Potassium (Losartan Potassium 25 Mg Tab) 25 mg PO [facility] Stop: 05/06/22 08:59 Last Admin: 04/07/22 08:02 Dose: 25 mg Documented by: Metoprolol Succinate (Metoprolol Succ 25mg Ext Rel Tab) [facility]: 05/08/22 08:59 Metoprolol Tartrate (Metoprolol Tartrate 1 Mg/Ml Vial) 5 mg IV Q5M PRN PRN Reason: Tachycardia Stop: 05/06/22 09:31 Multivitamins (Multivitamin Tab) 1 tab PO [facility] Stop: 05/06/22 08:59 Last Admin: 04/07/22 08:04 Dose: 1 tab Documented by: Nitroglycerin (Nitroglycerin Sl 0.4 Mg/Tab Tab) 0.4 mg SL UD PRN PRN Reason: Chest Pain Stop: 05/05/22 22:02 Oxycodone HCl (Oxycodone Hcl Ir 5 Mg Tab (Immediate Release)) 5 mg PO Q4H PRN PRN Reason: Pain Stop: 04/19/22 22:02 Sotalol HCl (Sotalol Hcl 80 Mg Tab) 80 mg PO BID [facility] Stop: 05/07/22 09:29 Thiamine HCl (Thiamine Hcl 100 Mg Tab) 100 mg PO [facility] Stop: 05/06/22 08:59 Last Admin: 04/07/22 08:04 Dose: 100 mg Documented by:
[2022-04-07] MEDS: SOTALOL HCL 80 MG TAB PO SCH ×2 (10:20→21:22)
--- NOTE | 2022-04-07 11:15 | Anesthesiology Consultation ---
Date of Service April 07, 2022 Assessment & Plan Chart Review Chart Review: Acceptable Risk for Surgery and Patient NOT seen in Pre Admission Testing Consults Requested none ASA ASA4 Proposed Anesthesia Anesthesia Type: General History Height/Weight Height: 5 ft 10 in Weight: 137.9 kg Allergies Allergy/AdvReac Type Severity Reaction Status Date / Time lisinopril AdvReac Intermediate Cough Verified 04/05/22 19:26 Medications Home Medications Medication Instructions Recorded Confirmed Last Taken carvedilol 3.125 mg tablet 3.125 mg PO BID 04/05/22 04/05/22 04/05/22 08:00 cholecalciferol (vitamin D3) 25 0 mcg PO DAILY 04/05/22 04/05/22 04/05/22 mcg (1,000 unit) capsule (Vitamin D3) hydrochlorothiazide 25 mg tablet 25 mg PO DAILY 04/05/22 04/05/22 04/05/22 losartan 25 mg tablet 25 mg PO DAILY 04/05/22 04/05/22 Unknown vitamin E 400 unit capsule 0 unit PO DAILY 04/05/22 04/05/22 04/05/22 Active Medications Generic Name Dose Route Start Last Admin Trade Name Freq PRN Reason Stop Dose Admin Folic Acid 1 mg 04/06/22 09:00 04/07/22 08:02 Folic Acid 1 Mg Tab PO 05/06/22 08:59 1 mg QAM TRACEE Administration Heparin Sodium/Dextrose 25,000 units in 500 mls @ 43 mls/hr 04/05/22 20:15 04/07/22 01:00 Heparin Sodium/Dextrose IV 05/05/22 20:14 2,150 units/hr .[id number] TRACEE 43 mls/hr Administration Protocol 2,150 UNITS/HR Losartan Potassium 25 mg 04/06/22 09:00 04/07/22 08:02 Losartan Potassium 25 Mg Tab PO 05/06/22 08:59 25 mg QAM TRACEE Administration Multivitamins 1 tab 04/06/22 09:00 04/07/22 08:04 Multivitamin Tab PO 05/06/22 08:59 1 tab QAM TRACEE Administration Sotalol HCl 80 mg 04/07/22 09:30 04/07/22 10:20 Sotalol Hcl 80 Mg Tab PO 05/07/22 09:29 80 mg BID TRACEE Administration Thiamine HCl 100 mg 04/06/22 09:00 04/07/22 08:04 Thiamine Hcl 100 Mg Tab PO 05/06/22 08:59 100 mg QAM TRACEE Administration Past Medical History Medical History Hypertension morbid obesity; ETOH abuse;LIZ;A Fib dilated cardiomyopathy Exercise / Class Metabolic Activity III < 4 Walking/Shop/Light housework Past Anesthesia History No Hx of Anesthesia Complications and No Family Hx of Anesthesia Complications History of PONV No Hx of PONV and No Hx of Motion Sickness Social History Smoking Status: Never smoker Hx Alcohol Use: Yes Alcohol type: beer alcohol intake frequency: 3 or more drinks per day Hx Substance Use: No Physical Exam Vital Signs Last Vital Signs Temp 36.7 C 04/07/22 07:23 Pulse 110 H 04/07/22 07:27 Resp 16 04/07/22 07:23 BP 115/43 L 04/07/22 07:23 Pulse Ox 94 04/07/22 07:23 Testing Laboratory Results 04/07/22 07:21 04/07/22 07:21 APTT 51.5 Seconds (21.0-31.0) H* 04/07/22 07:21 Electrocardiogram Date: 04/05/22 Findings: + AFIB @ (at 164 w/ RVR;IRBBB;? anter. infarct,age ?) Chest X-Ray Date: 04/05/22 Findings: + NAD and + cardiomegaly (moderate) Echocardiogram Date: 04/06/22 EF: 35% LV Function: dysfunctional RWMA: + hypokinetic Valvular Disease: + AI (mild) and + MR (moderate) TR-severe
--- NOTE | 2022-04-07 20:44 | Hospitalist Progress Note ---
Date of Service April 07, 2022 Assessment & Plan (1) Atrial fibrillation with rapid ventricular response: (2) New onset a-fib: Plan: (1) Atrial fibrillation with rapid ventricular response: (2) New onset a-fib: ? Alcohol abuse as precipitant ? Underlying LIZ hypertension, stable PCU Utilize Lopressor in place of patient's Coreg for better rate control IV heparin for thromboembolic prophylaxis TTE, Cardiology consult Re: New onset A. fib Seen by cardiology, likely plan for SID, and cardioversion Starting sotalol Echo obtained and reviewed - per cardiology - The patient has a dilated cardiomyopathy on echocardiogram. This could be due to persistent long-term tachycardia from his atrial fibrillation or idiopathic. Either way I believe he would benefit from early rhythm control. Starting sotalol today. He will have a SID tomorrow and if no contraindications early cardioversion. We will then continue the sotalol as well as guideline directed medications. Hypertension, stable Outpatient sleep study YAJAIRA S, DT precautions DVT prophylaxis. IV heparin Full code Patient -Mrs. Ana Laura Roberts, contact #[phone]. Admission and Anticipated Discharge Date Admission Date: April 05, 2022 Subjective Patient seen in follow-up of new onset A. fib Currently laying in bed, in no acute distress, on IV heparin Denies any palpitations, chest pain, shortness of breath Also denies any abdominal pain, nausea vomiting, blood in the stool Seen by cardiology, plan for SID, and cardioversion Pt started on sotalol. Pt's at the bedside and updated. Review of Systems Review of Systems: All systems reviewed & are unremarkable except as noted in Subjective Physical Exam Physical Exam: General: Obese M in NAD HEENT: NC/AT. EOMI, PERRL, moist mucous membranes Neck : supple Respiratory: CTAB, no wheezing rhonchi crackles noted CV: Irregularly irregular HR 100-110s Abdomen: soft, obese, non-tender, positive bowel sounds Musculoskeletal: Moves extremities Extremities: no LE edema Neuro: Alert oriented, answers appropriately, no facial asymmetry, moves extremities Skin: warm, dry Results & Data Results & Data ([facility]) Vital Signs (Past 12 Hours) Vital Signs Temp Pulse Pulse Resp BP Pulse Ox 04/07/22 19:36 36.7 C 74 18 133/93 95 04/07/22 15:40 37.1 C 109 H 14 128/78 96 04/07/22 15:33 122 H 04/07/22 11:04 37.1 C 94 H 16 121/74 96 Laboratory Results 04/07/22 04/07/22 04/07/22 Range/Units 07:21 07:21 07:21 WBC 7.10 (4.8-10.8) K/uL RBC 4.11 L (4.7-6.1) M/uL Hgb 12.4 L (14.0-18.0) g/dL Hct 37.8 L (42-52) % MCV 92.0 (80-100) fL MCH 30.2 (25-34) pg MCHC 32.8 (32-36) g/dL RDW Std Deviation 42.5 (36.4-46.3) fL RDW Coeff of Gerardo 12.6 (11.5-14.5) % Plt Count 93 L (130-400) K/uL MPV 10.2 (7.4-10.4) fL Platelet Estimate Decreased L (Normal) APTT 51.5 H* (21.0-31.0) Seconds PTT Ratio 1.9 Sodium 137 (136-145) mmol/L Potassium 3.7 (3.5-5.1) mmol/L Chloride 104 (98-107) mmol/L Carbon Dioxide 30 (21-32) mmol/L Anion Gap 3 (3-11) BUN 9 (6-23) mg/dl Creatinine 0.78 (0.6-1.4) mg/dl Est Cr Clr Drug Dosing 162.1 ml/min Est GFR ( Amer) 123.7 ml/min Est GFR (Non-Af Amer) 106.7 ml/min BUN/Creatinine Ratio 11.5 (10-20) Glucose 97 (70-99(Fasting)) mg/dl Calcium 8.5 (8.5-10.1) mg/dl Phosphorus 3.4 (2.5-4.9) mg/dl Magnesium 2.1 (1.7-2.4) mg/dl 04/06/22 Range/Units 23:33 WBC (4.8-10.8) K/uL RBC (4.7-6.1) M/uL Hgb (14.0-18.0) g/dL Hct (42-52) % MCV (80-100) fL MCH (25-34) pg MCHC (32-36) g/dL RDW Std Deviation (36.4-46.3) fL RDW Coeff of Gerardo (11.5-14.5) % Plt Count (130-400) K/uL MPV (7.4-10.4) fL Platelet Estimate (Normal) APTT 46.4 H* (21.0-31.0) Seconds PTT Ratio 1.7 Sodium (136-145) mmol/L Potassium (3.5-5.1) mmol/L Chloride (98-107) mmol/L Carbon Dioxide (21-32) mmol/L Anion Gap (3-11) BUN (6-23) mg/dl Creatinine (0.6-1.4) mg/dl Est Cr Clr Drug Dosing ml/min Est GFR ( Amer) ml/min Est GFR (Non-Af Amer) ml/min BUN/Creatinine Ratio (10-20) Glucose (70-99(Fasting)) mg/dl Calcium (8.5-10.1) mg/dl Phosphorus (2.5-4.9) mg/dl Magnesium (1.7-2.4) mg/dl Medications Administered Current Inpatient Medications Acetaminophen (Acetaminophen 325 Mg Tab) 650 mg PO Q4H PRN PRN Reason: Pain or Fever Stop: 05/05/22 22:02 Folic Acid (Folic Acid 1 Mg Tab) 1 mg PO [facility] Stop: 05/06/22 08:59 Last Admin: 04/07/22 08:02 Dose: 1 mg Documented by: Heparin Sodium/Dextrose (Heparin Sodium/Dextrose) 25,000 units in 500 mls @ 43 mls/hr IV .[id number] [facility]; Protocol Stop: 05/05/22 20:14 Last Admin: 04/07/22 13:21 Dose: 2,150 units/hr, 43 mls/hr Documented by: Lorazepam 0.5 mg/ Syringe 0.5 mls @ 2 mls/min IV Q4H PRN PRN Reason: Anxiety Stop: 05/05/22 22:02 Promethazine HCl 12.5 mg/ (Sodium Chloride) 50.5 mls @ 202 mls/hr IV Q6H PRN PRN Reason: Nausea And Vomiting Stop: 05/05/22 22:02 Losartan Potassium (Losartan Potassium 25 Mg Tab) 25 mg PO [facility] Stop: 05/06/22 08:59 Last Admin: 04/07/22 08:02 Dose: 25 mg Documented by: Metoprolol Succinate (Metoprolol Succ 25mg Ext Rel Tab) 25 mg PO [facility] Stop: 05/08/22 08:59 Metoprolol Tartrate (Metoprolol Tartrate 1 Mg/Ml Vial) 5 mg IV Q5M PRN PRN Reason: Tachycardia Stop: 05/06/22 09:31 Multivitamins (Multivitamin Tab) 1 tab PO [facility] Stop: 05/06/22 08:59 Last Admin: 04/07/22 08:04 Dose: 1 tab Documented by: Nitroglycerin (Nitroglycerin Sl 0.4 Mg/Tab Tab) 0.4 mg SL UD PRN PRN Reason: Chest Pain Stop: 05/05/22 22:02 Oxycodone HCl (Oxycodone Hcl Ir 5 Mg Tab (Immediate Release)) 5 mg PO Q4H PRN PRN Reason: Pain Stop: 04/19/22 22:02 Sotalol HCl (Sotalol Hcl 80 Mg Tab) 80 mg PO BID [facility] Stop: 05/07/22 09:29 Last Admin: 04/07/22 10:20 Dose: 80 mg Documented by: Thiamine HCl (Thiamine Hcl 100 Mg Tab) 100 mg PO [facility] Stop: 05/06/22 08:59 Last Admin: 04/07/22 08:04 Dose: 100 mg Documented by:
[2022-04-08] MEDS: HEPARIN SODIUM/DEXTROSE 25,000 UNITS/500 ML BAG IV SCH (00:58)
[2022-04-08] MEDS ORDERED: BENZOCAINE/TETRACAIN/BUTAM 50 APPLN/5 GM CAN EXT ONE (06:32)
[2022-04-08 06:59] LABS: Hematocrit (blood only) 37.7 % (42-52); Hemoglobin 12.3 g/dL (14.0-18.0); Mean Corpuscular Hgb Conc 32.6 g/dL (32-36); Mean Platelet Volume 10.6 fL (7.4-10.4); Platelet Count 112 K/uL (130-400); RDW Coefficient of Variation 12.6 % (11.5-14.5); RDW Standard Deviation 42.3 fL (36.4-46.3); White Blood Count 7.03 K/uL (4.8-10.8)
[2022-04-08 07:28] LABS: Anion Gap 7 (3-11); Blood Urea Nitrogen 10 mg/dl (6-23); Calcium 8.5 mg/dl (8.5-10.1); Carbon Dioxide 28 mmol/L (21-32); Chloride 103 mmol/L (98-107); Creatinine Clr Calc Pharmacy 150.3 ml/min; Est GFR (African American) 120.6 ml/min; Glucose 89 mg/dl (70-99(Fasting)); Magnesium 2.1 mg/dl (1.7-2.4); Phosphorus 3.9 mg/dl (2.5-4.9); Sodium 138 mmol/L (136-145)
[2022-04-08 07:29] LABS: Partial Thromboplastin Ratio 1.8
[2022-04-08] MEDS ORDERED: KETAMINE 50 MG/5 ML SYRINGE ONE (07:30)
[2022-04-08 07:37] LABS: Partial Thromboplastin Time 49.6 Seconds (21.0-31.0)
[2022-04-08] MEDS ORDERED: PROPOFOL IV EMULSION 10 MG/ML 20 ML VIAL IV ONE (07:54)
[2022-04-08] MEDS ORDERED: LIDOCAINE 2% 2 ML VIAL/AMP(20MG/ML) INFIL ONE (07:54)
--- NOTE | 2022-04-08 08:29 | Anesthesiology Progress Note ---
Date of Service April 08, 2022 Anesthesia Post Procedure Vital Signs Vital Signs: Temp Pulse Pulse Pulse Resp BP BP 04/08/22 08:20 37.1 C 100 H 16 143/101 H 04/08/22 08:05 109 H 16 123/84 04/08/22 07:50 131 H 16 123/95 04/08/22 07:40 117 H 04/08/22 07:24 129 H 16 149/129 H 04/08/22 05:06 36.6 C 113 H 18 142/92 H 04/08/22 00:15 118 H 04/07/22 23:27 37.1 C 111 H 20 109/75 04/07/22 19:36 36.7 C 74 18 133/93 04/07/22 15:40 37.1 C 109 H 14 128/78 04/07/22 15:33 122 H 04/07/22 11:04 37.1 C 94 H 16 121/74 Pulse Ox 04/08/22 08:20 98 04/08/22 08:05 98 04/08/22 07:50 98 04/08/22 07:40 04/08/22 07:24 96 04/08/22 05:06 100 04/08/22 00:15 04/07/22 23:27 95 04/07/22 19:36 95 04/07/22 15:40 96 04/07/22 15:33 04/07/22 11:04 96 Transfer of Care Handoff Completed per policy Notes Mental Status: alert / awake / arousable and participated in evaluation Patient Amnestic to Procedure: Yes Nausea / Vomiting: adequately controlled Pain: adequately controlled Airway Patency, RR, SpO2: stable & adequate BP & HR: stable & adequate Hydration State: stable & adequate Anesthetic Complications: no major complications apparent and Pt Satisfied with anesthetic care
[2022-04-08] MEDS ORDERED: METOPROLOL SUCC 25MG EXT REL TAB PO SCH (09:00)
--- NOTE | 2022-04-08 09:10 | Cardiology Progress Note ---
Date of Service April 08, 2022 Assessment & Plan (1) Atrial fibrillation with rapid ventricular response: (2) Hypertension: (3) Work related injury: (4) New onset a-fib: (5) Cardiomyopathy: Plan: The patient had a SID this morning. Unfortunately, he has left atrial appendage thrombus and will need several weeks of anticoagulation before considering a cardioversion. Therefore, I stopped his sotalol. The plan is to try to get his heart rate under better control today and I have increased his metoprolol succinate to 50 mg twice daily. I have also switched him to Eliquis and stopped his heparin. If his heart rates are better controlled by tomorrow then he can possibly be discharged to outpatient follow-up. Admission and Anticipated Discharge Date Admission Date: April 05, 2022 Subjective The patient is resting comfortably. All questions answered Review of Systems Review of Systems: Review of Systems: See HPI for pertinent positives. All other 10 point review of systems are negative. Physical Exam Physical Exam: General: no acute distress and stated age Head: normocephalic, no masses, lesions, tenderness or abnormalities Eyes: conjunctiva are pink and non-injected, sclera clear Neck: supple, no adenopathy, no bruits, normal jugular venous pulse, no hepatojugular reflux Chest: normal shape and normal respiratory effort Lungs: clear to auscultation and percussion Cardiac Exam: - irregular rate & rhythm, no murmurs gallops or rubs - normal S1, normal S2 Pulses: 2(+) throughout Abdomen: abdomen soft, non-tender, no abnormal masses and no hepatosplenomegaly Musculoskeletal: no gait disturbance, no joint inflammation, no deforming arthritis Extremities: no edema and no cyanosis Neuro: grossly normal exam Results & Data ([facility]) Vital Signs (Past 12 Hours) Vital Signs Temp Pulse Pulse Pulse Resp BP BP 04/08/22 08:50 135 H 04/08/22 08:20 37.1 C 100 H 16 143/101 H 04/08/22 08:05 109 H 16 123/84 04/08/22 07:50 131 H 16 123/95 04/08/22 07:40 117 H 04/08/22 07:24 129 H 16 149/129 H 04/08/22 05:06 36.6 C 113 H 18 142/92 H 04/08/22 00:15 118 H 04/07/22 23:27 37.1 C 111 H 20 109/75 Pulse Ox 04/08/22 08:50 04/08/22 08:20 98 04/08/22 08:05 98 04/08/22 07:50 98 04/08/22 07:40 04/08/22 07:24 96 04/08/22 05:06 100 04/08/22 00:15 04/07/22 23:27 95 Laboratory Results Laboratory Results - last 24 hr 04/08/22 04/08/22 04/08/22 05:47 05:47 05:47 WBC 7.03 RBC 4.10 L Hgb 12.3 L Hct 37.7 L MCV 92.0 MCH 30.0 MCHC 32.6 RDW Std Deviation 42.3 RDW Coeff of Gerardo 12.6 Plt Count 112 L MPV 10.6 H APTT 49.6 H* PTT Ratio 1.8 Sodium 138 Potassium TNP Chloride 103 Carbon Dioxide 28 Anion Gap 7 BUN 10 Creatinine 0.83 Est Cr Clr Drug Dosing 150.3 Est GFR ( Amer) 120.6 Est GFR (Non-Af Amer) 104.0 BUN/Creatinine Ratio 12.0 Glucose 89 Calcium 8.5 Phosphorus 3.9 Magnesium 2.1 04/08/22 08:47 WBC RBC Hgb Hct MCV MCH MCHC RDW Std Deviation RDW Coeff of Gerardo Plt Count MPV APTT PTT Ratio Sodium Potassium Pending Chloride Carbon Dioxide Anion Gap BUN Creatinine Est Cr Clr Drug Dosing Est GFR ( Amer) Est GFR (Non-Af Amer) BUN/Creatinine Ratio Glucose Calcium Phosphorus Magnesium Medications Administered Current Inpatient Medications Acetaminophen (Acetaminophen 325 Mg Tab) 650 mg PO Q4H PRN PRN Reason: Pain or Fever Stop: 05/05/22 22:02 Apixaban (Apixaban 5 Mg Tablet) 5 mg PO BID [facility] Stop: 05/08/22 08:59 Folic Acid (Folic Acid 1 Mg Tab) 1 mg PO QAM [facility]ACEE Stop: 05/06/22 08:59 Last Admin: 04/07/22 08:02 Dose: 1 mg Documented by: Lorazepam 0.5 mg/ Syringe 0.5 mls @ 2 mls/min IV Q4H PRN PRN Reason: Anxiety Stop: 05/05/22 22:02 Promethazine HCl 12.5 mg/ (Sodium Chloride) 50.5 mls @ 202 mls/hr IV Q6H PRN PRN Reason: Nausea And Vomiting Stop: 05/05/22 22:02 Losartan Potassium (Losartan Potassium 25 Mg Tab) 25 mg PO [facility] Stop: 05/06/22 08:59 Last Admin: 04/07/22 08:02 Dose: 25 mg Documented by: Metoprolol Succinate (Metoprolol Succ 50mg Ext Rel Tab) 50 mg PO BID [facility] Stop: 05/08/22 08:59 Metoprolol Tartrate (Metoprolol Tartrate 1 Mg/Ml Vial) 5 mg IV Q5M PRN PRN Reason: Tachycardia Stop: 05/06/22 09:31 Multivitamins (Multivitamin Tab) 1 tab PO [facility] Stop: 05/06/22 08:59 Last Admin: 04/07/22 08:04 Dose: 1 tab Documented by: Nitroglycerin (Nitroglycerin Sl 0.4 Mg/Tab Tab) 0.4 mg SL UD PRN PRN Reason: Chest Pain Stop: 05/05/22 22:02 Oxycodone HCl (Oxycodone Hcl Ir 5 Mg Tab (Immediate Release)) 5 mg PO Q4H PRN PRN Reason: Pain Stop: 04/19/22 22:02 Thiamine HCl (Thiamine Hcl 100 Mg Tab) 100 mg PO [facility] Stop: 05/06/22 08:59 Last Admin: 04/07/22 08:04 Dose: 100 mg Documented by:
--- NOTE | 2022-04-08 09:57 | Hospitalist Progress Note ---
Date of Service April 08, 2022 Assessment & Plan (1) Atrial fibrillation with rapid ventricular response: (2) New onset a-fib: Plan: (1) Atrial fibrillation with rapid ventricular response: (2) New onset a-fib: (3) left atrial appendage thrombus ? Alcohol abuse as precipitant ? Underlying LIZ hypertension, stable PCU Utilize Lopressor in place of patient's Coreg for better rate control IV heparin started on admission for thromboembolic prophylaxis TTE, Cardiology consult Re: New onset A. fib TTE obtained and reviewed - per cardiology - The patient has a dilated cardiomyopathy on echocardiogram. This could be due to persistent long-term tachycardia from his atrial fibrillation or idiopathic. SID -patient has thrombus in left atrial appendage, and therefore cardioversion could not be done IV heparin switched to Eliquis Sotalol discontinued, and metoprolol succinate 50 twice daily ordered for rate control Hypertension, stable Outpatient sleep study YAJAIRA S, DT precautions DVT prophylaxis. IV heparin -> eliquis Full code Patient -Mrs. Ana Laura Roberts, contact #[phone]. Admission and Anticipated Discharge Date Admission Date: April 05, 2022 Subjective Patient seen in follow-up of new onset A. fib Currently laying in bed, in no acute distress, has been on IV heparin - plan to switch to Eliquis today Had SID today -embolus in left atrial appendage, therefore no cardioversion could be done today Denies any palpitations, chest pain, shortness of breath Also denies any abdominal pain, nausea vomiting, blood in the stool Review of Systems Review of Systems: All systems reviewed & are unremarkable except as noted in Subjective Physical Exam Physical Exam: General: Obese M in NAD HEENT: NC/AT. EOMI, PERRL, moist mucous membranes Neck : supple Respiratory: CTAB, no wheezing rhonchi crackles noted CV: Irregularly irregular HR 100-110s Abdomen: soft, obese, non-tender, positive bowel sounds Musculoskeletal: Moves extremities Extremities: no LE edema Neuro: Alert oriented, answers appropriately, no facial asymmetry, moves extremities Skin: warm, dry Results & Data Results & Data ([facility]) Vital Signs (Past 12 Hours) Vital Signs Temp Pulse Pulse Pulse Resp BP BP 04/08/22 08:50 135 H 04/08/22 08:20 37.1 C 100 H 16 143/101 H 04/08/22 08:05 109 H 16 123/84 04/08/22 07:50 131 H 16 123/95 04/08/22 07:40 117 H 04/08/22 07:24 129 H 16 149/129 H 04/08/22 05:06 36.6 C 113 H 18 142/92 H 04/08/22 00:15 118 H 04/07/22 23:27 37.1 C 111 H 20 109/75 Pulse Ox 04/08/22 08:50 04/08/22 08:20 98 04/08/22 08:05 98 04/08/22 07:50 98 04/08/22 07:40 04/08/22 07:24 96 04/08/22 05:06 100 04/08/22 00:15 04/07/22 23:27 95 Laboratory Results 04/08/22 04/08/22 04/08/22 Range/Units 08:47 05:47 05:47 WBC 7.03 (4.8-10.8) K/uL RBC 4.10 L (4.7-6.1) M/uL Hgb 12.3 L (14.0-18.0) g/dL Hct 37.7 L (42-52) % MCV 92.0 (80-100) fL MCH 30.0 (25-34) pg MCHC 32.6 (32-36) g/dL RDW Std Deviation 42.3 (36.4-46.3) fL RDW Coeff of Gerardo 12.6 (11.5-14.5) % Plt Count 112 L (130-400) K/uL MPV 10.6 H (7.4-10.4) fL APTT (21.0-31.0) Seconds PTT Ratio Sodium 138 (136-145) mmol/L Potassium 3.8 TNP Chloride 103 (98-107) mmol/L Carbon Dioxide 28 (21-32) mmol/L Anion Gap 7 (3-11) BUN 10 (6-23) mg/dl Creatinine 0.83 (0.6-1.4) mg/dl Est Cr Clr Drug Dosing 150.3 ml/min Est GFR ( Amer) 120.6 ml/min Est GFR (Non-Af Amer) 104.0 ml/min BUN/Creatinine Ratio 12.0 (10-20) Glucose 89 (70-99(Fasting)) mg/dl Calcium 8.5 (8.5-10.1) mg/dl Phosphorus 3.9 (2.5-4.9) mg/dl Magnesium 2.1 (1.7-2.4) mg/dl 04/08/22 Range/Units 05:47 WBC (4.8-10.8) K/uL RBC (4.7-6.1) M/uL Hgb (14.0-18.0) g/dL Hct (42-52) % MCV (80-100) fL MCH (25-34) pg MCHC (32-36) g/dL RDW Std Deviation (36.4-46.3) fL RDW Coeff of Gerardo (11.5-14.5) % Plt Count (130-400) K/uL MPV (7.4-10.4) fL APTT 49.6 H* (21.0-31.0) Seconds PTT Ratio 1.8 Sodium (136-145) mmol/L Potassium Chloride (98-107) mmol/L Carbon Dioxide (21-32) mmol/L Anion Gap (3-11) BUN (6-23) mg/dl Creatinine (0.6-1.4) mg/dl Est Cr Clr Drug Dosing ml/min Est GFR ( Amer) ml/min Est GFR (Non-Af Amer) ml/min BUN/Creatinine Ratio (10-20) Glucose (70-99(Fasting)) mg/dl Calcium (8.5-10.1) mg/dl Phosphorus (2.5-4.9) mg/dl Magnesium (1.7-2.4) mg/dl Medications Administered Current Inpatient Medications Acetaminophen (Acetaminophen 325 Mg Tab) 650 mg PO Q4H PRN PRN Reason: Pain or Fever Stop: 05/05/22 22:02 Apixaban (Apixaban 5 Mg Tablet) 5 mg PO BID [facility] Stop: 05/08/22 08:59 Folic Acid (Folic Acid 1 Mg Tab) 1 mg PO QAM [facility] Stop: 05/06/22 08:59 Last Admin: 04/07/22 08:02 Dose: 1 mg Documented by: Lorazepam 0.5 mg/ Syringe 0.5 mls @ 2 mls/min IV Q4H PRN PRN Reason: Anxiety Stop: 05/05/22 22:02 Promethazine HCl 12.5 mg/ (Sodium Chloride) 50.5 mls @ 202 mls/hr IV Q6H PRN PRN Reason: Nausea And Vomiting Stop: 05/05/22 22:02 Losartan Potassium (Losartan Potassium 25 Mg Tab) 25 mg PO [facility] Stop: 05/06/22 08:59 Last Admin: 04/07/22 08:02 Dose: 25 mg Documented by: Metoprolol Succinate (Metoprolol Succ 50mg Ext Rel Tab) 50 mg PO BID [facility] Stop: 05/08/22 08:59 Metoprolol Tartrate (Metoprolol Tartrate 1 Mg/Ml Vial) 5 mg IV Q5M PRN PRN Reason: Tachycardia Stop: 05/06/22 09:31 Multivitamins (Multivitamin Tab) 1 tab PO [facility] Stop: 05/06/22 08:59 Last Admin: 04/07/22 08:04 Dose: 1 tab Documented by: Nitroglycerin (Nitroglycerin Sl 0.4 Mg/Tab Tab) 0.4 mg SL UD PRN PRN Reason: Chest Pain Stop: 05/05/22 22:02 Oxycodone HCl (Oxycodone Hcl Ir 5 Mg Tab (Immediate Release)) 5 mg PO Q4H PRN PRN Reason: Pain Stop: 04/19/22 22:02 Thiamine HCl (Thiamine Hcl 100 Mg Tab) 100 mg PO [facility] Stop: 05/06/22 08:59 Last Admin: 04/07/22 08:04 Dose: 100 mg Documented by:
[2022-04-08] MEDS: METOPROLOL SUCC 50MG EXT REL TAB PO SCH ×2 (10:26→20:23)
[2022-04-08] MEDS: APIXABAN 5 MG TABLET PO SCH ×2 (10:27→20:23)
[2022-04-08] MEDS: FOLIC ACID 1 MG TAB PO SCH (12:25)
[2022-04-08] MEDS: MULTIVITAMIN TAB PO SCH (12:25)
[2022-04-08] MEDS: THIAMINE HCL 100 MG TAB PO SCH (12:25)
--- NOTE | 2022-04-08 12:41 | Electrocardiogram Report ---
Test Reason : Blood Pressure : / mmHG Vent. Rate : 112 BPM Atrial Rate : 122 BPM P-R Int : 000 ms QRS Dur : 102 ms QT Int : 364 ms P-R-T Axes : 000 039 065 degrees QTc Int : 496 ms Atrial fibrillation with rapid ventricular response with premature ventricular or aberrantly conducte d complexes Nonspecific T wave abnormality Abnormal ECG When compared with ECG of 05-APR-2022 16:58, No significant change was found Confirmed by Sebastian Carvajal ([id number]) on 04/08/2022 12:40:50 PM Referred By: Yuki Correia Confirmed By:Sebastian Carvajal
[2022-04-08] MEDS: LOSARTAN POTASSIUM 25 MG TAB PO SCH (13:14)
--- NOTE | 2022-04-09 08:29 | Hospitalist Progress Note ---
Date of Service April 09, 2022 Assessment & Plan (1) Atrial fibrillation with rapid ventricular response: (2) New onset a-fib: Plan: (1) Atrial fibrillation with rapid ventricular response: (2) New onset a-fib: (3) left atrial appendage thrombus ? Alcohol abuse as precipitant ? Underlying LIZ, recommend Outpatient sleep study hypertension, stable PCU Cardiology consult Re: New onset A. fib Utilize Lopressor in place of patient's Coreg for better rate control IV heparin started on admission for thromboembolic prophylaxis, now IV heparin switched to Eliquis TTE obtained and reviewed - per cardiology - The patient has a dilated ca rdiomyopathy on echocardiogram. This could be due to persistent long-term tachycardia from his atrial fibrillation or idiopathic. SID -patient has thrombus in left atrial appendage, and therefore cardioversion could not be done Metoprolol succinate 75 twice daily ordered for rate control Morbid obesity, BMI 43 - provided counseling, outpt dietitian consultation recommended Hypertension, stable -Patient reports he was having cough with lisinopril, which was discontinued by his PCP, right prior to his admission Started on losartan, seems to tolerate well DVT prophylaxis. now on eliquis Full code Patient -Mrs. Ana Laura Roberts, contact #[phone]. Admission and Anticipated Discharge Date Admission Date: April 05, 2022 Subjective Patient seen in follow-up of new onset A. fib Had SID yesterday -embolus in left atrial appendage, therefore no cardioversion could be done IV heparin was switched to Eliquis Pt denies any palpitations, chest pain, shortness of breath Also denies any abdominal pain, nausea vomiting, blood in the stool Review of Systems Review of Systems: All systems reviewed & are unremarkable except as noted in Subjective Physical Exam Physical Exam: General: Obese M in NAD HEENT: NC/AT. EOMI, PERRL, moist mucous membranes Neck : supple Respiratory: CTAB, no wheezing rhonchi crackles noted CV: Irregularly irregular HR 110s Abdomen: soft, obese, non-tender, positive bowel sounds Musculoskeletal: Moves extremities Extremities: no LE edema Neuro: Alert oriented, answers appropriately, no facial asymmetry, moves extremities Skin: warm, dry Results & Data Results & Data ([facility]) Vital Signs (Past 12 Hours) Vital Signs Temp Pulse Pulse Pulse Resp BP BP 04/09/22 08:18 37.3 C 122 H 20 137/97 04/09/22 07:00 94 H 04/09/22 03:17 36.8 C 119 H 18 129/85 04/09/22 00:09 133 H 04/08/22 23:01 118 H 04/08/22 22:46 37.0 C 111 H 20 134/92 Pulse Ox 04/09/22 08:18 99 04/09/22 07:00 04/09/22 03:17 96 04/09/22 00:09 04/08/22 23:01 04/08/22 22:46 97 Laboratory Results 04/09/22 04/09/22 Range/Units 08:36 08:36 WBC 6.28 (4.8-10.8) K/uL RBC 4.34 L (4.7-6.1) M/uL Hgb 13.3 L (14.0-18.0) g/dL Hct 40.4 L (42-52) % MCV 93.1 (80-100) fL MCH 30.6 (25-34) pg MCHC 32.9 (32-36) g/dL RDW Std Deviation 42.3 (36.4-46.3) fL RDW Coeff of Gerardo 12.3 (11.5-14.5) % Plt Count 118 L (130-400) K/uL MPV 10.6 H (7.4-10.4) fL Sodium 139 (136-145) mmol/L Potassium 3.5 (3.5-5.1) mmol/L Chloride 103 (98-107) mmol/L Carbon Dioxide 30 (21-32) mmol/L Anion Gap 6 (3-11) BUN 11 (6-23) mg/dl Creatinine 0.84 (0.6-1.4) mg/dl Est Cr Clr Drug Dosing 148.9 ml/min Est GFR ( Amer) 120.0 ml/min Est GFR (Non-Af Amer) 103.5 ml/min BUN/Creatinine Ratio 13.1 (10-20) Glucose 111 H (70-99(Fasting)) mg/dl Calcium 9.2 (8.5-10.1) mg/dl Phosphorus 3.0 (2.5-4.9) mg/dl Magnesium 2.1 (1.7-2.4) mg/dl Medications Administered Current Inpatient Medications Acetaminophen (Acetaminophen 325 Mg Tab) 650 mg PO Q4H PRN PRN Reason: Pain or Fever Stop: 05/05/22 22:02 Apixaban (Apixaban 5 Mg Tablet) 5 mg PO BID [facility] Stop: 05/08/22 08:59 Last Admin: 04/08/22 20:23 Dose: 5 mg Documented by: Folic Acid (Folic Acid 1 Mg Tab) 1 mg PO QAM [facility] Stop: 05/06/22 08:59 Last Admin: 04/08/22 12:25 Dose: 1 mg Documented by: Lorazepam 0.5 mg/ Syringe 0.5 mls @ 2 mls/min IV Q4H PRN PRN Reason: Anxiety Stop: 05/05/22 22:02 Promethazine HCl 12.5 mg/ (Sodium Chloride) 50.5 mls @ 202 mls/hr IV Q6H PRN PRN Reason: Nausea And Vomiting Stop: 05/05/22 22:02 Losartan Potassium (Losartan Potassium 25 Mg Tab) 25 mg PO [facility] Stop: 05/06/22 08:59 Last Admin: 04/08/22 13:14 Dose: 25 mg Documented by: Metoprolol Succinate (Metoprolol Succ 50mg Ext Rel Tab) 50 mg PO BID [facility] Stop: 05/08/22 08:59 Last Admin: 04/08/22 20:23 Dose: 50 mg Documented by: Metoprolol Tartrate (Metoprolol Tartrate 1 Mg/Ml Vial) 5 mg IV Q5M PRN PRN Reason: Tachycardia Stop: 05/06/22 09:31 Multivitamins (Multivitamin Tab) 1 tab PO [facility] Stop: 05/06/22 08:59 Last Admin: 04/08/22 12:25 Dose: 1 tab Documented by: Nitroglycerin (Nitroglycerin Sl 0.4 Mg/Tab Tab) 0.4 mg SL UD PRN PRN Reason: Chest Pain Stop: 05/05/22 22:02 Oxycodone HCl (Oxycodone Hcl Ir 5 Mg Tab (Immediate Release)) 5 mg PO Q4H PRN PRN Reason: Pain Stop: 04/19/22 22:02 Thiamine HCl (Thiamine Hcl 100 Mg Tab) 100 mg PO [facility] Stop: 05/06/22 08:59 Last Admin: 04/08/22 12:25 Dose: 100 mg Documented by:
[2022-04-09 09:26] LABS: Hematocrit (blood only) 40.4 % (42-52); Hemoglobin 13.3 g/dL (14.0-18.0); Mean Corpuscular Hemoglobin 30.6 pg (25-34); Mean Corpuscular Hgb Conc 32.9 g/dL (32-36); Mean Corpuscular Volume 93.1 fL (80-100); Mean Platelet Volume 10.6 fL (7.4-10.4); Platelet Count 118 K/uL (130-400); RDW Coefficient of Variation 12.3 % (11.5-14.5); RDW Standard Deviation 42.3 fL (36.4-46.3); Red Blood Count 4.34 M/uL (4.7-6.1); White Blood Count 6.28 K/uL (4.8-10.8)
[2022-04-09] MEDS: THIAMINE HCL 100 MG TAB PO SCH (09:41)
[2022-04-09] MEDS: MULTIVITAMIN TAB PO SCH (09:41)
[2022-04-09] MEDS: LOSARTAN POTASSIUM 25 MG TAB PO SCH (09:41)
[2022-04-09] MEDS: METOPROLOL SUCC 50MG EXT REL TAB PO SCH (09:42)
[2022-04-09] MEDS: APIXABAN 5 MG TABLET PO SCH (09:43)
[2022-04-09] MEDS: FOLIC ACID 1 MG TAB PO SCH (09:44)
[2022-04-09 09:56] LABS: BUN Creatinine Ratio 13.1 (10-20); Calcium 9.2 mg/dl (8.5-10.1); Creatinine Clr Calc Pharmacy 148.9 ml/min; Est GFR (Non-African American) 103.5 ml/min; Magnesium 2.1 mg/dl (1.7-2.4); Potassium 3.5 mmol/L (3.5-5.1)
--- NOTE | 2022-04-09 11:34 | Cardiology Progress Note ---
Date of Service April 09, 2022 Assessment & Plan (1) Atrial fibrillation with rapid ventricular response: (2) Hypertension: (3) Work related injury: (4) New onset a-fib: (5) Cardiomyopathy: Plan: 46-year-old male with newly diagnosed atrial fibrillation and diffuse cardiomyopathy possibly tachycardia mediated. Currently asymptomatic heart rates coming under better control patient currently anticoagulated with Eliquis Recommendations: Increase metoprolol succinate to 75 mg twice per day. Note room to increase metoprolol succinate and losartan as an outpatient as blood pressure and heart rate require. Continue anticoagulation with Eliquis. Stable for discharge today with plan follow-up PCP as scheduled 04/13/2022 cardiology 3 weeks time Admission and Anticipated Discharge Date Admission Date: April 05, 2022 Subjective Patient seen and examined, chart, medications, telemetry reviewed. Feels well, slept well last night. Not aware of irregular heart rhythm. No chest pains or discomfort. Ambulatory in room. Review of Systems Review of Systems: All systems reviewed & are unremarkable except as noted in Subjective Physical Exam Constitutional: WD/WN, vitals as above Eyes: PERRL, conjunctivae normal, anicteric sclerae ENMT: external ear and nose normal, oropharynx normal Neck: trachea midline, no thyromegaly Respiratory: normal respiratory effort, lungs clear to auscultation Cardiovascular: Rate/Rhythm: + tachycardic and + irregularly irregular Heart Sounds: no murmur Vessels: no JVD Extremities: no edema Gastrointestinal (Abdomen): normal bowel sounds, soft, nontender, no hepatosplenomegaly Results & Data ([facility]) Vital Signs (Past 12 Hours) Vital Signs Temp Pulse Pulse Pulse Resp BP BP 04/09/22 08:18 37.3 C 122 H 20 137/97 04/09/22 07:00 94 H 04/09/22 03:17 36.8 C 119 H 18 129/85 04/09/22 00:09 133 H Pulse Ox 04/09/22 08:18 99 04/09/22 07:00 04/09/22 03:17 96 04/09/22 00:09 Laboratory Results Laboratory Results - last 24 hr 04/09/22 04/09/22 08:36 08:36 WBC 6.28 RBC 4.34 L Hgb 13.3 L Hct 40.4 L MCV 93.1 MCH 30.6 MCHC 32.9 RDW Std Deviation 42.3 RDW Coeff of Gerardo 12.3 Plt Count 118 L MPV 10.6 H Sodium 139 Potassium 3.5 Chloride 103 Carbon Dioxide 30 Anion Gap 6 BUN 11 Creatinine 0.84 Est Cr Clr Drug Dosing 148.9 Est GFR ( Amer) 120.0 Est GFR (Non-Af Amer) 103.5 BUN/Creatinine Ratio 13.1 Glucose 111 H Calcium 9.2 Phosphorus 3.0 Magnesium 2.1 Medications Administered Current Medications Acetaminophen (Acetaminophen 325 Mg Tab) 650 mg PO Q4H PRN PRN Reason: Pain or Fever Stop: 05/05/22 22:02 Apixaban (Apixaban 5 Mg Tablet) 5 mg PO BID [facility] Stop: 05/08/22 08:59 Last Admin: 04/09/22 09:43 Dose: 5 mg Documented by: Folic Acid (Folic Acid 1 Mg Tab) 1 mg PO QAM [facility] Stop: 05/06/22 08:59 Last Admin: 04/09/22 09:44 Dose: 1 mg Documented by: Lorazepam 0.5 mg/ Syringe 0.5 mls @ 2 mls/min IV Q4H PRN PRN Reason: Anxiety Stop: 05/05/22 22:02 Promethazine HCl 12.5 mg/ (Sodium Chloride) 50.5 mls @ 202 mls/hr IV Q6H PRN PRN Reason: Nausea And Vomiting Stop: 05/05/22 22:02 Losartan Potassium (Losartan Potassium 25 Mg Tab) 25 mg PO QAM [facility] Stop: 05/06/22 08:59 Last Admin: 04/09/22 09:41 Dose: 25 mg Documented by: Metoprolol Succinate (Metoprolol Succ 50mg Ext Rel Tab) 50 mg PO BID [facility] Stop: 05/08/22 08:59 Last Admin: 04/09/22 09:42 Dose: 50 mg Documented by: Metoprolol Tartrate (Metoprolol Tartrate 1 Mg/Ml Vial) 5 mg IV Q5M PRN PRN Reason: Tachycardia Stop: 05/06/22 09:31 Multivitamins (Multivitamin Tab) [facility] Stop: 05/06/22 08:59 Last Admin: 04/09/22 09:41 Dose: 1 tab Documented by: Nitroglycerin (Nitroglycerin Sl 0.4 Mg/Tab Tab) 0.4 mg SL UD PRN PRN Reason: Chest Pain Stop: 05/05/22 22:02 Oxycodone HCl (Oxycodone Hcl Ir 5 Mg Tab (Immediate Release)) 5 mg PO Q4H PRN PRN Reason: Pain Stop: 04/19/22 22:02 Thiamine HCl (Thiamine Hcl 100 Mg Tab) 100 mg [facility] Stop: 05/06/22 08:59 Last Admin: 04/09/22 09:41 Dose: 100 mg Documented by:
[2022-04-09] MEDS ORDERED: METOPROLOL SUCC 25MG EXT REL TAB PO ONE (11:35)
[2022-04-09] MEDS ORDERED: POTASSIUM CHLORIDE CRTAB 20 MEQ TABCR PO STA (12:38)
--- NOTE | 2022-04-09 12:42 | Discharge Summary ---
Date of Service April 09, 2022 Admission HPI Per Admitting Provider History obtained from patient, family, and records. Medical history significant for hypertension, prolonged QT syndrome, daily alcohol intake. Patient started by PCP on lisinopril for additional blood pressure control a few months ago. A month after taking medication, patient developed dry cough symptoms described as a tickle in the throat. Patient did not take lisinopril this morning prior to going to PCPs office for follow-up visit. Lisinopril switched to losartan. Heartbeat noted to be irregular on auscultation by provider. Patient denies chest pain, SOB. No unusual stress at home. Daily alcohol intake, occasionally heavy on the weekends. Snoring during sleep as per with occasional apneic episodes. Outpatient EKG showed A. fib. Patient directed to ER for evaluation of abnormal heartbeat. IV Cardizem infusion initiated at the ER. 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 Admission Exam Per Admitting Provider GENERAL: Comfortable, pleasant, morbidly obese, no respiratory distress SKIN: Normal color, warm HEENT: [place] palpebral conjunctivae, no ptosis, moist buccal mucosa NECK : Supple, short neck no tenderness CHEST : CTA, no tenderness HEART : Irregular, no obvious murmurs ABDOMEN: Some distention, nontender EXTREMITIES : Minimal LE swelling without tenderness, no other conspicuous deformities noted NEUROLOGIC : Coherent, no facial asymmetry, no other gross focality Principal Diagnosis Atrial fibrillation with RVR Discharge Exam General: Obese M in NAD HEENT: NC/AT. EOMI, PERRL, moist mucous membranes Neck : supple Respiratory: CTAB, no wheezing rhonchi crackles noted CV: Irregularly irregular HR 110s Abdomen: soft, obese, non-tender, positive bowel sounds Musculoskeletal: Moves extremities Extremities: no LE edema Neuro: Alert oriented, answers appropriately, no facial asymmetry, moves extremities Skin: warm, dry Discharge Data Allergies Allergy/AdvReac Type Severity Reaction Status Date / Time lisinopril AdvReac Intermediate Cough Verified 04/05/22 19:26 Consultations 04/05/22 22:03 Consult Cardiology Routine 04/07/22 09:36 Consult Anesthesiology Routine Procedures Performed Operation Date: 04/08/22 07:30 Actual Procedures p Echo Transesophageal - Herb Jaimes, DO s Echo Color Flow - Herb Jaimes, DO Hospital Course (1) Atrial fibrillation with rapid ventricular response: (2) New onset a-fib: (1) Atrial fibrillation with rapid ventricular response: (2) New onset a-fib: (3) left atrial appendage thrombus ? Alcohol abuse as precipitant ? Underlying LIZ, recommend Outpatient sleep study hypertension, stable PCU Cardiology consult Re: New onset A. fib Utilize Lopressor in place of patient's Coreg for better rate control IV heparin started on admission for thromboembolic prophylaxis, now IV heparin switched to Eliquis TTE obtained and reviewed - per cardiology - The patient has a dilated cardiomyopathy on echocardiogram. This could be due to persistent long-term tachycardia from his atrial fibrillation or idiopathic. SID -patient has thrombus in left atrial appendage, and therefore cardioversion could not be done Metoprolol succinate 75 twice daily ordered for rate control Morbid obesity, BMI 43 - provided counseling, outpt dietitian consultation recommended Hypertension, stable -Patient reports he was having cough with lisinopril, which was discontinued by his PCP, right prior to his admission Started on losartan, seems to tolerate well Total Time Total Time Spent Total Time Spent (In Minutes): 40 Discharge Plan Discharge Items Patient Disposition: Home - Self-Care Reason For Visit: AF Discharge Diagnosis: Atrial fibrillation with RVR Activity: Per Instructions section Non-emergency contact: Primary Care Provider and Agricultural Technical Officer Call non-emergency contact if: you have any medication questions and your symptoms worsen Follow-up/Referrals: Yuki Correia MD [Primary Care Provider] - (Date & Time 04/13/2022 10:20 AM Provider Yuki Nair MD Department Family Medicine [facility] ) Diet: Heart Healthy Addtl Attending Provider Instructions: Follow-up with your primary care doctor, the appointment was scheduled for you for April 13. You will also need to follow-up with cardiology, in 3 weeks. You will be contacted about the appointment. Take metoprolol succinate 75 mg twice a day, instead of Coreg. Take Eliquis, blood thinner, as prescribed. Recommend to obtain sleep study, for possible sleep apnea. Also recommend dietitian consult, and weight loss. Monitor your blood pressure at home, and record these numbers. Discuss your blood pressure values with your primary care doctor and engineering project designer. Your medications may need further adjustment. Pending Studies at Discharge: No Stand-Alone Forms: My [facility], Smoking Cessation Medications and DC Order Prescriptions: New Eliquis 5 mg Tablet 5 mg PO BID Qty: 60 RF: 0 metoprolol succinate 25 mg Tablet Extended Release 24 Hr 75 mg PO BID Qty: 90 RF: 0 Continued losartan 25 mg tablet 25 mg PO DAILY RF: 0 vitamin E 400 unit Capsule 0 unit PO DAILY RF: 0 cholecalciferol (vitamin D3) [Vitamin D3] 25 mcg (1,000 unit) Capsule 0 mcg PO DAILY RF: 0 Discontinued carvedilol 3.125 mg tablet 3.125 mg PO BID RF: 0 hydrochlorothiazide 25 mg tablet 25 mg PO DAILY RF: 0 Discharge Orders: Discharge Order (Routine); Ordered 04/09/22 Ordered By: Kaiser Navas Admission Data Admit Date/Time: 04/05/22 19:56 Attending Provider: Kaiser Navas Admit Provider: Silvestre Sellers Primary Care Provider: Yuki Correia Other Providers: Anthony Garland ; Aly Steiner ; Damion Richard ; Rohit Anderson ; Herb Jaimes ; Douglas Miller ; Holly Corona ; Kelley Corley ; Shruthi Sharpe ; Jadon Vuong ; Radha Olivares ; Jammie Blum ; Ashley Rios ; Karla Alcaraz ; Aquilino Stoner ; Earl Montiel ; Herb Conn ; Toñito Rodríguez ; Mar Rodríguez ; Emil Sparks ; Radha Alaniz ; Brayan Reaves ; Elton Jefferson ; Kenneth Sanchez ; Ari Boudreaux ; Esther Lambert ; Douglas Mejia ; Mell Cates ; Naomi Mejia ; Cleveland Hess ; Shruthi Tillman ; Galindo Caban. ; Holly Olivares ; Tracee Nair ; Gris Bee ; Anthony Nj ; Ese Valiente ; Yulisa Celestin ; Toyin Menendez ; Lucila Lira ; Silvestre Lira V ; Marshall Boudreaux ; Jammie Silva ; Daquan Reyes ; Samantha Edwards ; Silvestre Solitario ; Cain Lambert ; Hieu Kincaid ; Roxann De La Cruz ; Selena Carson ; Silvestre Elias ; Aly Guzman ; Joe Boudreaux ; Niya Martinez ; Maicol Najera ; Huan Sarmiento ; Camden Bah ; Maicol Avilez ; Aquilino Corrales Jr ; Irene Muhammad ; Chelo Soria ; Leonora White ; Anthony Walton ; Karla Gonzalez ; Toñito Conde ; Timoteo Hassan I. ; Tete Torres
[2022-04-09] MEDS ORDERED: METOPROLOL SUCC 25MG EXT REL TAB PO SCH (21:00)
== END 2022-04-09 14:54 | disposition home or self-care (01) | DRG 309 ==
LOC: ED 16:47 → 2S 19:56

== ENCOUNTER 2022-05-10 06:03 | Inpatient (IN) ==
--- NOTE | 2022-05-09 14:47 | Anesthesiology Consultation ---
Date of Service May 09, 2022 Assessment & Plan (1) Encounter for pre-operative examination: - thrombocytopenia: Plt 105k. To anesthesiologist discretion if repeat labs needed DOS. - cardiology [facility] 05/05/22 [facility]: "...March,...newly recognized atrial fibrill ation with rapid ventricular response. A transesophageal echocardiogram guided cardioversion was attempted by Dr. Jaimes however the patient was found to have a left atrial appendage thrombus...discharged on a plan of anticoagulation with Eliquis, and metoprolol for rate control...From a cardiac standpoint he notes no subjective palpitations, shortness of breath, or lightheadedness or dizziness... denies chest discomfort...As of next week, patient will of been on uninterrupted anticoagulation for 4 weeks. Recommend repeat trial of transesophageal echocardiogram guided cardioversion...patient does have a past history of alcohol use, and this may be contributing to his atrial arrhythmias as well as hypertension..." - COVID screening: Per therapy director on 05/09/2022: Travel screen negative, no known COVID-19 positive contacts or current COVID-19 related symptoms in past 2 weeks. Surgeon arranging preop COVID testing, scheduled 05/06/2022. Awaiting results. 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 History Surgery Operation Date: 05/10/22 07:15 Proposed Procedures p Transesophageal Echo w/Anesthesia - Herb Jaimes DO s Cardioversion Private Security Guard w/Anesthesia - Herb Jaimes DO Height/Weight Height: 5 ft 10 in Weight: 136.078 kg Allergies Allergy/AdvReac Type Severity Reaction Status Date / Time lisinopril AdvReac Unknown Cough Verified 05/09/22 13:41 Medications Home Medications Medication Instructions Recorded Confirmed Last Taken cholecalciferol (vitamin D3) 25 0 mcg PO DAILY 04/05/22 05/09/22 04/05/22 mcg (1,000 unit) capsule (Vitamin D3) losartan 25 mg tablet 25 mg PO QAM 04/05/22 05/09/22 Unknown vitamin E 268 mg (400 unit) capsule 0 unit PO DAILY 04/05/22 05/09/22 04/05/22 apixaban 5 mg tablet (Eliquis) 5 mg PO BID #60 tabs 04/08/22 05/09/22 05/09/22 metoprolol succinate 25 mg 75 mg PO BID #90 tabs 04/09/22 05/09/22 Unknown tablet,extended release 24 hr multivitamin 1 cap PO DAILY 05/09/22 05/09/22 Unknown Past Medical History Medical History (Updated 05/09/22 @ 14:47 by Selena Carson PA-C) Afib afib with RVR dx 03/2022, left atrial appendage thrombus detected on echo d/c on Eliquis and metoprolol Alcohol dependence Cardiomyopathy dilated, EF 35-40%, suspected to be tachycardia induced per [place] and [facility] cardio records Fatty liver History of COVID-19 10 WKS AGO, + HOME TEST - RUNNY NOSE/DRY COUGH/FATIGUE NO CURRENT S/S Hypertension Long QT syndrome Snores SAYS HE STOPS BREATHING IN HIS SLEEP/ SLEEP APNEA TEST SCHEDULED JUL 2022 Thrombus of left atrial appendage plan for repeat trial of SID guided cardioversion after 4 weeks of anticoagulation per [facility] cardio chart Past Family History Family History Uncle Family history of colon cancer Other Family history of diabetes mellitus Past Surgical History Surgical History History of hernia surgery A BABY History of surgery BICEP TENDON REPAIR, LEFT Social History Smoking Status: Never smoker Do You Dip or Chew Tobacco: No Hx Alcohol Use: Yes Alcohol type: beer alcohol intake frequency: 0-2 drinks per day Hx Substance Use: No substance use type: does not use Testing Laboratory Results 05/06/2022 WBC: 8.2 H/H: 13/42 PLATELETS: 105 SODIUM: 141 POTASSIUM: 4.4 CHLORIDE: 104 CO2: 25 BUN: 11 CREATININE: 0.9 GLUCOSE: 92 Electrocardiogram Date: 05/05/22 Afib with RVR, rate 151 bpm Incomplete RBBB Chest X-Ray Date: 04/05/22 *1view* Lung volumes are normal. Lungs are clear. There is no pneumothorax or pleural effusion. There is moderate enlargement of the cardiac silhouette. Mediastinal contours are normal. There is no evidence for pulmonary edema. IMPRESSION: No acute cardiopulmonary findings. Moderate enlargement of the cardiac silhouette. Echocardiogram Date: 04/08/22 SID Left atrial appendage thrombus noted TTE 04/06/22 EF 35-40% LV mildly dilated Mild aortic regurgitation Mild to moderate mitral regurgitation Moderate to severe tricuspid regurgitation PASP less than 36 mmHg
[2022-05-10] MEDS ORDERED: PROPOFOL IV EMULSION 10 MG/ML 20 ML VIAL IV ONE (06:23)
[2022-05-10] MEDS ORDERED: LIDOCAINE 2% 20 MG/ML 5 ML SYR IV ONE (06:23)
--- NOTE | 2022-05-10 07:33 | Cardiology Consultation ---
Date of Consultation May 10, 2022 Assessment & Plan (1) Cardiomyopathy: (2) Atrial fibrillation with rapid ventricular response: Plan The patient will be admitted to the hospital for heart rate control and restart of anticoagulation. The patient had previously been started on sotalol during his last hospital admission and was tolerating this medication however, after the left atrial appendage thrombus was found the sotalol was discontinued with a planned elective cardioversion after several weeks of anticoagulation. The patient will be restarted on Eliquis and metoprolol succinate 100 mg twice daily. I will consider starting the patient once again on sotalol after we see his heart rate response to the metoprolol. If the patient does well then we will consider repeating the SID and proceeding with an elective cardioversion. History of Present Illness Attending Physician: Herb Jaimes, History of Present Illness This is a 46-year-old male patient with a history of hypertension who was admitted to the hospital several weeks ago with new onset atrial fibrillation with RVR. The patient underwent a transesophageal echocardiogram prior to planned cardioversion however, left atrial thrombus was noted and the cardioversion was postponed. The patient was started on Eliquis with the plan of him returning in 5 weeks for an elective cardioversion. The patient presented today and unfortunately he ran out of his Eliquis yesterday and only took a morning dose. So he has been off of anticoagulation for approximately 24 hours. He also has persistent atrial fibrillation with heart rates in the 140- 150 range. Patient and his confirmed that he has been taking the metoprolol. He did not take his Eliquis because he had run out of his prescription yesterday morning. He has no cardiac complaints and is asymptomatic in regard to his arrhythmia. It should be noted that the patient by echocardiography had an estimated left ventricular ejection fraction of 35 to 40% during his last admission. It was hopeful, that the cardiomyopathy was tachycardia induced and would resolve after the patient was placed back into rhythm and had rate control. He also had a sleep study planned in the near future. His cardioversion was canceled today and admission is planned to restart anticoagulation as well as obtain rate control. Once the patient has been on anticoagulation for at least 24 hours then the plan would be to proceed with a transesophageal guided cardioversion. Allergies Allergy/AdvReac Type Severity Reaction Status Date / Time lisinopril AdvReac Unknown Cough Verified 05/09/22 13:41 Home Medications Medication Instructions Recorded Confirmed Type cholecalciferol (vitamin D3) 25 0 mcg PO DAILY 04/05/22 05/09/22 History mcg (1,000 unit) capsule (Vitamin D3) losartan 25 mg tablet 25 mg PO QAM 04/05/22 05/09/22 History vitamin E 268 mg (400 unit) capsule 0 unit PO DAILY 04/05/22 05/09/22 History apixaban 5 mg tablet (Eliquis) 5 mg PO BID #60 tabs 04/08/22 05/09/22 Rx metoprolol succinate 25 mg 75 mg PO BID #90 tabs 04/09/22 05/09/22 Rx tablet,extended release 24 hr multivitamin 1 cap PO DAILY 05/09/22 05/09/22 History Patient History Medical History (Updated 05/10/22 @ 09:22 by Josefina Grewal PA-C) Afib afib with RVR dx 03/2022, left atrial appendage thrombus detected on echo d/c on Eliquis and metoprolol Alcohol dependence Cardiomyopathy dilated, EF 35-40%, suspected to be tachycardia induced per [place] and [facility] cardio records Fatty liver History of COVID-19 10 WKS AGO, + HOME TEST - RUNNY NOSE/DRY COUGH/FATIGUE NO CURRENT S/S Hypertension Long QT syndrome Snores SAYS HE STOPS BREATHING IN HIS SLEEP/ SLEEP APNEA TEST SCHEDULED JUL 2022 Thrombus of left atrial appendage plan for repeat trial of SID guided cardioversion after 4 weeks of anticoagulation per 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 All other 10 point review of systems are negative. Physical Exam Physical Exam: General: no acute distress and stated age Head: normocephalic, no masses, lesions, tenderness or abnormalities Eyes: conjunctiva are pink and non-injected, sclera clear Neck: supple, no adenopathy, no bruits, normal jugular venous pulse, no hepatojugular reflux Chest: normal shape and normal respiratory effort Lungs: clear to auscultation and percussion Cardiac Exam: - irregular rate & rhythm, no murmurs gallops or rubs - normal S1, normal S2 Pulses: 2(+) throughout Abdomen: abdomen soft, non-tender, no abnormal masses and no hepatosplenomegaly Musculoskeletal: no gait disturbance, no joint inflammation, no deforming arthritis Extremities: no edema and no cyanosis Neuro: grossly normal exam Results & Data ([facility]) Vital Signs (Past 12 Hours) 140/80, pulse 160 BPM Medications Administered Current Inpatient Medications Apixaban (Apixaban 5 Mg Tablet) 5 mg PO BID [facility]ACEE Stop: 06/09/22 08:59 Losartan Potassium (Losartan Potassium 25 Mg Tab) 25 mg PO QAM TRACEE Stop: 06/09/22 08:59 Metoprolol Succinate (Metoprolol Succ 50mg Ext Rel Tab) 100 mg PO BID TRACEE Stop: 06/09/22 08:59
--- NOTE | 2022-05-10 08:30 | XRay Report ---
XR chest 1V portable CLINICAL HISTORY: Atrial fibrillation. COMPARISON STUDY: Chest radiograph April 05, 2022. FINDINGS: There is mild elevation of the right hemidiaphragm. No pneumothorax or pleural effusion is noted. Moderate cardiomegaly is unchanged. There may be subtle interstitial thickening. IMPRESSION: Stable moderate cardiomegaly. Possible subtle interstitial pulmonary edema. ACT 112: Negative or not required by law. Electronically signed by: Robson Morrow M.D. 05/10/2022 8:28 AM
--- NOTE | 2022-05-10 08:30 | History & Physical Report ---
Date of Service May 10, 2022 Assessment & Plan (1) Afib: (2) Thrombus of left atrial appendage: (3) Cardiomyopathy: Plan: - Admit to PCU - Cardiology consulted-appreciate recommendations - Continue on metoprolol and losartan as per cardiology - Repeat Echo - Loading with eliquis with anticipation of elective cardioversion in 2 days -Check CBC, BMP, mag, Phos now -A1c and lipid panel with a.m. labs -Allow HH diet (4) Fatty liver: (5) Alcohol dependence: Plan: -Drinks at least 3 beers daily, 8 beers on weekends-reduction/cessation was encouraged at bedside (6) Morbid obesity with BMI of 40.0-44.9, adult: Plan: - BMI of 43.0 - Exercise and style modifications discussed such as parking far away from grocery store entrance, using the stairs, taking a daily walk for 20 to 30 minutes -Weight loss of 20 to 30 pounds was encouraged over the next few months to help improve cardiac standpoint. Significant family history with father with cardiac disease as per HPI DVT PPx: - ambulatory, Eliquis CODE: Full code Dispo: From home, likely to remain in the hospital x 2 days History of Present Illness Chief Complaint: Cardioversion, missed eliquis Primary Care Provider: Yuki Correia MD This is a 46 yo M with PMHx of hypertension, newly diagnosed A. fib, aortic valve sclerosis, RBBB, alcohol use, fatty liver, morbid obesity with a BMI of 43.0, and left biceps tendon rupture from work related injury. Approximately 1 month ago in March 2022 he was admitted here to [facility] with newly diagnosed A. fib with RVR, a transthoracic echo was done on 04/08/22 and the patient was found to have a left atrial appendage thrombus, therefore he was discharged at that time with anticoagulation on Eliquis and metoprolol for rate control. He has tentatively been scheduled for an electrical cardioversion however ran out of his prescription and missed the dose x 24 hours on 05/09, therefore cardiology is recommending he be admitted to load him with Eliquis x 2 days, monitor his heart rate with metoprolol succinate, repeat echo and then proceed with cardioversion. His metoprolol has been increased to 100 mg twice daily with possibility of transitioning to sotalol pending how he responds, and also continuing losartan 25 mg daily. The patient and his are present in the [facility]. He states that he is doing well today, denies any issues with palpitations, flutter, lightheadedness, dizziness chest pain in the past month. He reports feeling shortness of breath with physical exertion as he had a left bicep tendon tear- approximately about a month ago and had been out of work. 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 He is hopeful to return to work next week sometime. Patient is tolerating diet without any difficulty, and reports that he drinks approximately 3 beers daily 5 times per week, and then on weekends he drinks approximately 8 daily. Discussion was held on reduction of alcohol consumption at bedside and encouraged. We also discussed exercise, weight loss of goal of 10 to 20 pounds within the next 3 months as he reports being tested for CPAP in next few months. He does not wear any oxygen or CPAP mask at baseline or at bedtime. Allergies Allergy/AdvReac Type Severity Reaction Status Date / Time lisinopril AdvReac Unknown Cough Verified 05/09/22 13:41 Home Medications Medication Instructions Recorded Confirmed Type cholecalciferol (vitamin D3) 25 0 mcg PO DAILY 04/05/22 05/09/22 History mcg (1,000 unit) capsule (Vitamin D3) losartan 25 mg tablet 25 mg PO QAM 04/05/22 05/09/22 History vitamin E 268 mg (400 unit) capsule 0 unit PO DAILY 04/05/22 05/09/22 History apixaban 5 mg tablet (Eliquis) 5 mg PO BID #60 tabs 04/08/22 05/09/22 Rx metoprolol succinate 25 mg 75 mg PO BID #90 tabs 04/09/22 05/09/22 Rx tablet,extended release 24 hr multivitamin 1 cap PO DAILY 05/09/22 05/09/22 History Past Med/Surg History Medical History (Updated 05/10/22 @ 09:22 by Josefina Grewal PA-C) Afib afib with RVR dx 03/2022, left atrial appendage thrombus detected on echo d/c on Eliquis and metoprolol Alcohol dependence Cardiomyopathy dilated, EF 35-40%, suspected to be tachycardia induced per [place] and [facility] cardio records Fatty liver History of COVID-19 10 WKS AGO, + HOME TEST - RUNNY NOSE/DRY COUGH/FATIGUE NO CURRENT S/S Hypertension Long QT syndrome Snores SAYS HE STOPS BREATHING IN HIS SLEEP/ SLEEP APNEA TEST SCHEDULED JUL 2022 Thrombus of left atrial appendage plan for repeat trial of SID guided cardioversion after 4 weeks of anticoagulation per [facility] cardio chart Surgical History History of hernia surgery A BABY History of surgery BICEP TENDON REPAIR, LEFT Family History Uncle Family history of colon cancer Father Heart disease Hypertension Myocardial infarction age 55 Other Family history of diabetes mellitus Social History Smoking Status: Never smoker Do You Dip or Chew Tobacco: No; Hx Alcohol Use: Yes Alcohol type: beer Hx Substance Use: No Preferred Language: Portuguese Communication Ability: Effective Barn Boss Required: No Beliefs That Will Affect Care: None Current Living Situation: Spouse Feels Safe at Home: Yes Assistive Devices: None Review of Systems Review of Systems: Constitutional: No fever, chills, sweats, fatigue or weakness Eyes: No diplopia, no changes in vision ENT: No sore throat, tinnitus, or trouble swallowing Respiratory: No shortness of breath, No dyspnea at rest or on exertion, no cough or sputum Cardiovascular: No chest pain, palpitations, or flutter Abdomen: No pain, No constipation, No diarrhea, No nausea, No vomiting Musculoskeletal: No calf pain, No joint pain, No swelling Genitourinary : No dysuria or urinary frequency, No hematuria Neurologic: No numbness/tingling, no difficulty with ambulation, no sensory or motor deficits Psychiatric: No depression or anxiety symptoms Endocrine: No fatigue, No weight changes Integumentary: No itch, No rash Physical Exam Physical Exam: General: awake, alert, no apparent distress, obese with BMI of 43.0 Head: Normocephalic, atraumatic ENT: PERRL, EOMI, no pharyngeal exudate, mucous membranes moist Chest: Clear to auscultation, on room air, no adventitious breath sounds Cardiac: Regular rate and rhythm, no murmur, no JVD, normal peripheral pulses, good capillary refill Abdominal: NABS x 4 quadrants, soft, nondistended, nontender to palpation, no rebound or guarding Extremities: Normal inspection, no peripheral edema or erythema, calfs nontender to palpation Psych: Normal mood and affect Neuro: AAO x 3, strength intact bilaterally and rated 5/5, no motor deficits, speech is clear, no peripheral sensory deficits Results & Data Results & Data ([facility]) Vital Signs (Past 12 Hours) Vital Signs Temp Pulse Resp BP Pulse Ox O2 Del Method 05/10/22 07:25 36.7 C 144 H 18 105/91 97 Room Air Code Status & VTE Plan Code Status Full code-discussed with the patient at bedside
[2022-05-10] MEDS ORDERED: ACETAMINOPHEN 325 MG TAB PO PRN ×2 (08:44→11:03)
[2022-05-10] MEDS ORDERED: ONDANSETRON INJ 2 MG/ML 2 ML VIAL IV PRN (08:44)
[2022-05-10] MEDS: LOSARTAN POTASSIUM 25 MG TAB PO SCH (08:45)
[2022-05-10] MEDS: APIXABAN 5 MG TABLET PO SCH ×2 (08:45→21:18)
[2022-05-10] MEDS ORDERED: TOCOPHERYL, DL-ALPHA 400 UNITS 180 MG CAP PO SCH (09:00)
[2022-05-10] MEDS ORDERED: METOPROLOL SUCC 50MG EXT REL TAB PO SCH (09:00)
[2022-05-10] MEDS ORDERED: CHOLECALCIFEROL 1,000 UNITS 25 MCG TAB PO SCH (09:00)
[2022-05-10 13:10] LABS: Albumin Globulin Ratio 1.4 (0.9-2); Albumin Level 3.9 gm/dl (3.4-5.0); BUN Creatinine Ratio 20.7 (10-20); Bilirubin,Total 1.4 mg/dl (0.2-1.0); Calcium 9.2 mg/dl (8.5-10.1); Creatinine Clr Calc Pharmacy 144.2 ml/min; Est GFR (African American) 118.3 ml/min; Est GFR (Non-African American) 102.1 ml/min; Globulin 2.8 gm/dl (2.5-4.0); Total Protein 6.7 gm/dl (6.0-8.3)
[2022-05-10 13:25] LABS: Hematocrit (blood only) 39.4 % (40.1-51.0); Hemoglobin 12.4 g/dl (14.0-18.0); Mean Corpuscular Hemoglobin 29.5 pg (25.0-34.0); Mean Corpuscular Hgb Conc 31.5 g/dL (32.0-36.0); Mean Corpuscular Volume 93.6 fL (80.0-100.0); Mean Platelet Volume 10.8 fL (9.4-12.4); Platelet Count 86 K/uL (130-400); RDW Coefficient of Variation 12.9 % (11.5-14.5); RDW Standard Deviation 44.3 fL (36.4-46.3); Red Blood Count 4.21 M/uL (4.63-6.08); White Blood Count 5.98 K/ul (4.8-10.8)
[2022-05-10 13:26] LABS: Basophils # (auto) 0.03 K/uL (0-0.2); Basophils % (auto) 0.5 %; Eosinophils # (auto) 0.14 K/uL (0-0.50); Eosinophils % (auto) 2.3 %; Immature Granulocytes # (auto) 0.02 K/uL (0.00-0.02); Immature Granulocytes % (auto) 0.3 %; Lymphocytes # (auto) 1.76 K/uL (1.2-3.4); Lymphocytes % (auto) 29.4 %; Monocytes % (auto) 8.4 %; Neutrophils # (auto) 3.53 K/uL (1.4-6.5); Neutrophils % (auto) 59.1 %; Platelet Estimate Decreased (Normal)
[2022-05-10] MEDS: SOTALOL HCL 80 MG TAB PO SCH ×2 (13:37→20:21)
[2022-05-10] MEDS: MULTIVITAMIN TAB PO SCH (13:37)
[2022-05-10] MEDS: METOPROLOL SUCC 25MG EXT REL TAB PO SCH (20:22)
[2022-05-11 05:39] LABS: Basophils # (auto) 0.06 K/uL (0-0.2); Basophils % (auto) 0.8 %; Eosinophils # (auto) 0.22 K/uL (0-0.50); Hematocrit (blood only) 38.3 % (40.1-51.0); Hemoglobin 12.2 g/dl (14.0-18.0); Immature Granulocytes # (auto) 0.01 K/uL (0.00-0.02); Immature Granulocytes % (auto) 0.1 %; Lymphocytes # (auto) 2.26 K/uL (1.2-3.4); Lymphocytes % (auto) 30.5 %; Mean Corpuscular Hemoglobin 29.2 pg (25.0-34.0); Mean Corpuscular Hgb Conc 31.9 g/dL (32.0-36.0); Mean Corpuscular Volume 91.6 fL (80.0-100.0); Mean Platelet Volume 10.4 fL (9.4-12.4); Monocytes % (auto) 8.1 %; Neutrophils # (auto) 4.25 K/uL (1.4-6.5); Neutrophils % (auto) 57.5 %; Platelet Count 86 K/uL (130-400); RBC Morphology Unremarkable; RDW Coefficient of Variation 12.8 % (11.5-14.5); Red Blood Count 4.18 M/uL (4.63-6.08)
[2022-05-11 05:42] LABS: Alanine Aminotransferase 26 U/L (7-52); Albumin Globulin Ratio 1.5 (0.9-2); Albumin Level 3.8 gm/dl (3.4-5.0); Alkaline Phosphatase 52 U/L (34-104); Anion Gap 8 (3-11); Aspartate Aminotransferase 30 U/L (13-39); BUN Creatinine Ratio 22.2 (10-20); Bilirubin,Total 1.3 mg/dl (0.2-1.0); Blood Urea Nitrogen 20 mg/dl (6-23); Calcium 8.5 mg/dl (8.5-10.1); Carbon Dioxide 23 mmol/L (21-32); Chloride 106 mmol/L (98-107); Chol HDL Ratio 6.4 (0-5); Cholesterol 122 mg/dl (0-200); Creatinine Clr Calc Pharmacy 139.4 ml/min; Est GFR (African American) 116.6 ml/min; Est GFR (Non-African American) 100.6 ml/min; Globulin 2.6 gm/dl (2.5-4.0); Glucose 88 mg/dl (70-99(Fasting)); HDL Cholesterol 19 mg/dl; LDL Cholesterol Calculated 82 mg/dl; Potassium 4.2 mmol/L (3.5-5.1); Sodium 137 mmol/L (136-145); Total Protein 6.4 gm/dl (6.0-8.3); Triglycerides 107 mg/dl (0-150); VLDL Cholesterol 21 mg/dl (0-30)
[2022-05-11 07:08] LABS: Estimated Average Glucose 117 mg/dl; Hemoglobin A1C 5.7 % (4.5-5.6)
[2022-05-11] MEDS: APIXABAN 5 MG TABLET PO SCH ×2 (08:25→20:56)
[2022-05-11] MEDS: METOPROLOL SUCC 25MG EXT REL TAB PO SCH (08:25)
[2022-05-11] MEDS: SOTALOL HCL 80 MG TAB PO SCH ×2 (08:26→20:29)
[2022-05-11] MEDS: MULTIVITAMIN TAB PO SCH (08:26)
--- NOTE | 2022-05-11 10:15 | Cardiology Progress Note ---
Date of Service May 11, 2022 Assessment & Plan (1) Cardiomyopathy: (2) Atrial fibrillation with rapid ventricular response: Plan The patient remains in persistent atrial fibrillation. His heart rates have improved with the addition of sotalol however they remain high at 110 to 120 bpm. I will increase his metoprolol to 100 mg twice daily. A repeat SID and cardioversion is planned for tomorrow morning. The patient will be n.p.o. after midnight. Admission and Anticipated Discharge Date Admission Date: May 10, 2022 Subjective The patient is comfortable and watching TV. He has no new cardiac complaints today. Review of Systems Review of Systems: Review of Systems: See HPI for pertinent positives. All other 10 point review of systems are negative. Physical Exam Physical Exam: General: no acute distress and stated age Head: normocephalic, no masses, lesions, tenderness or abnormalities Eyes: conjunctiva are pink and non-injected, sclera clear Neck: supple, no adenopathy, no bruits, normal jugular venous pulse, no hepatojugular reflux Chest: normal shape and normal respiratory effort Lungs: clear to auscultation and percussion Cardiac Exam: - irregular rate & rhythm, no murmurs gallops or rubs - normal S1, normal S2 Pulses: 2(+) throughout Abdomen: abdomen soft, non-tender, no abnormal masses and no hepatosplenomegaly Musculoskeletal: no gait disturbance, no joint inflammation, no deforming arthritis Extremities: no edema and no cyanosis Neuro: grossly normal exam Results & Data ([facility]) Vital Signs (Past 12 Hours) Vital Signs Temp Pulse Pulse Resp BP Pulse Ox O2 Del Method 05/11/22 08:28 122 H 21 135/88 05/11/22 07:04 36.9 C 115 H 18 120/91 96 Room Air 05/11/22 07:00 106 H 05/11/22 04:59 36.7 C 118 H 22 119/90 97 Room Air 05/10/22 23:40 125 H 05/10/22 23:04 37.1 C 111 H 22 108/85 97 Room Air Laboratory Results Laboratory Results - last 24 hr 05/10/22 05/10/22 05/10/22 10:57 12:27 12:27 WBC 5.98 RBC 4.21 L Hgb 12.4 L Hct 39.4 L MCV 93.6 MCH 29.5 MCHC 31.5 L RDW Std Deviation 44.3 RDW Coeff of Gerardo 12.9 Plt Count 86 L MPV 10.8 Immature Gran % (Auto) 0.3 Neut % (Auto) 59.1 Lymph % (Auto) 29.4 [place] % (Auto) 8.4 Eos % (Auto) 2.3 Baso % (Auto) 0.5 Neut # (Auto) 3.53 Lymph # (Auto) 1.76 [place] # (Auto) 0.50 Eos # (Auto) 0.14 Baso # (Auto) 0.03 Immature Gran # (Auto) 0.02 Platelet Estimate Decreased L RBC Morphology Sodium 138 Potassium 4.0 Chloride 107 Carbon Dioxide 25 Anion Gap 6 BUN 18 Creatinine 0.87 Est Cr Clr Drug Dosing 144.2 Est GFR ( Amer) 118.3 Est GFR (Non-Af Amer) 102.1 BUN/Creatinine Ratio 20.7 H Glucose 99 Estimat Average Glucose Hemoglobin A1c Calcium 9.2 Magnesium 2.0 Total Bilirubin 1.4 H Direct Bilirubin AST 26 ALT 26 Alkaline Phosphatase 52 Total Protein 6.7 Albumin 3.9 Globulin 2.8 Albumin/Globulin Ratio 1.4 Triglycerides Cholesterol LDL Cholesterol, Calc VLDL Cholesterol, Calc HDL Cholesterol Cholesterol/HDL Ratio Nasal Screen MRSA (PCR) Negative 05/11/22 05/11/22 05/11/22 04:33 04:33 04:33 WBC 7.40 RBC 4.18 L Hgb 12.2 L Hct 38.3 L MCV 91.6 MCH 29.2 MCHC 31.9 L RDW Std Deviation 42.0 RDW Coeff of Gerardo 12.8 Plt Count 86 L MPV 10.4 Immature Gran % (Auto) 0.1 Neut % (Auto) 57.5 Lymph % (Auto) 30.5 [place] % (Auto) 8.1 Eos % (Auto) 3.0 Baso % (Auto) 0.8 Neut # (Auto) 4.25 Lymph # (Auto) 2.26 [place] # (Auto) 0.60 Eos # (Auto) 0.22 Baso # (Auto) 0.06 Immature Gran # (Auto) 0.01 Platelet Estimate RBC Morphology Unremarkable Sodium 137 Potassium 4.2 Chloride 106 Carbon Dioxide 23 Anion Gap 8 BUN 20 Creatinine 0.90 Est Cr Clr Drug Dosing 139.4 Est GFR ( Amer) 116.6 Est GFR (Non-Af Amer) 100.6 BUN/Creatinine Ratio 22.2 H Glucose 88 Estimat Average Glucose 117 Hemoglobin A1c 5.7 H Calcium 8.5 Magnesium 2.0 Total Bilirubin 1.3 H Direct Bilirubin TNP AST 30 ALT 26 Alkaline Phosphatase 52 Total Protein 6.4 Albumin 3.8 Globulin 2.6 Albumin/Globulin Ratio 1.5 Triglycerides 107 Cholesterol 122 LDL Cholesterol, Calc 82 VLDL Cholesterol, Calc 21 HDL Cholesterol 19 Cholesterol/HDL Ratio 6.4 H Nasal Screen MRSA (PCR) 05/11/22 05:54 WBC RBC Hgb Hct MCV MCH MCHC RDW Std Deviation RDW Coeff of Gerardo Plt Count MPV Immature Gran % (Auto) Neut % (Auto) Lymph % (Auto) [place] % (Auto) Eos % (Auto) Baso % (Auto) Neut # (Auto) Lymph # (Auto) [place] # (Auto) Eos # (Auto) Baso # (Auto) Immature Gran # (Auto) Platelet Estimate RBC Morphology Sodium Potassium Chloride Carbon Dioxide Anion Gap BUN Creatinine Est Cr Clr Drug Dosing Est GFR ( Amer) Est GFR (Non-Af Amer) BUN/Creatinine Ratio Glucose Estimat Average Glucose Hemoglobin A1c Calcium Magnesium Total Bilirubin Direct Bilirubin 0.3 H AST ALT Alkaline Phosphatase Total Protein Albumin Globulin Albumin/Globulin Ratio Triglycerides Cholesterol LDL Cholesterol, Calc VLDL Cholesterol, Calc HDL Cholesterol Cholesterol/HDL Ratio Nasal Screen MRSA (PCR) Medications Administered Current Inpatient Medications Acetaminophen (Acetaminophen 325 Mg Tab) 650 mg PO Q4H PRN PRN Reason: Moderate Pain Stop: 06/09/22 08:43 Acetaminophen (Acetaminophen 325 Mg Tab) 650 mg PO Q4H PRN PRN Reason: Pain or Fever Stop: 06/09/22 11:02 Apixaban (Apixaban 5 Mg Tablet) 5 mg PO BID [facility] Stop: 06/09/22 08:59 Last Admin: 05/11/22 08:25 Dose: 5 mg Losartan Potassium (Losartan Potassium 25 Mg Tab) 25 mg PO QAM [facility]ACEE Stop: 06/09/22 08:59 Last Admin: 05/10/22 08:45 Dose: 25 mg Metoprolol Succinate (Metoprolol Succ 25mg Ext Rel Tab) 75 mg PO BID TRACEE Stop: 06/09/22 20:59 Last Admin: 05/11/22 08:25 Dose: 75 mg Multivitamins (Multivitamin Tab) 1 tab PO DAILY [facility] Stop: 06/09/22 12:44 Last Admin: 05/11/22 08:26 Dose: 1 tab Ondansetron HCl (Ondansetron Inj 2 Mg/Ml 2 Ml Vial) 4 mg IV Q4H PRN PRN Reason: Nausea And Vomiting Stop: 06/09/22 08:43 Sotalol HCl (Sotalol Hcl 80 Mg Tab) 80 mg PO BID TRACEE Stop: 06/09/22 12:29 Last Admin: 05/11/22 08:26 Dose: 80 mg
[2022-05-11] MEDS: LOSARTAN POTASSIUM 25 MG TAB PO SCH (10:30)
--- NOTE | 2022-05-11 11:33 | Electrocardiogram Report ---
Test Reason : Blood Pressure : / mmHG Vent. Rate : 126 BPM Atrial Rate : 117 BPM P-R Int : 000 ms QRS Dur : 094 ms QT Int : 412 ms P-R-T Axes : 000 067 106 degrees QTc Int : 596 ms Atrial fibrillation with rapid ventricular response Incomplete right bundle branch block Nonspecific T wave abnormality Abnormal ECG When compared with ECG of 08-APR-2022 04:55, No significant change was found Confirmed by Praful Mcleod ([id number]) on 05/11/2022 11:33:22 AM Referred By: Aly Steiner Confirmed By:Praful Mcleod
--- NOTE | 2022-05-11 13:53 | Electrocardiogram Report ---
Test Reason : Blood Pressure : / mmHG Vent. Rate : 122 BPM Atrial Rate : 117 BPM P-R Int : 000 ms QRS Dur : 096 ms QT Int : 356 ms P-R-T Axes : 000 049 067 degrees QTc Int : 507 ms Poor data quality, interpretation may be adversely affected Atrial fibrillation with rapid ventricular response with premature ventricular or aberrantly conducte d complexes Nonspecific T wave abnormality Abnormal ECG When compared with ECG of 10-MAY-2022 13:42, (unconfirmed) No significant change was found Confirmed by Praful Mcleod ([id number]) on 05/11/2022 1:53:23 PM Referred By: Aly Steiner Confirmed By:Praful Mcleod
--- NOTE | 2022-05-11 14:13 | Electrocardiogram Report ---
Test Reason : Blood Pressure : / mmHG Vent. Rate : 116 BPM Atrial Rate : 110 BPM P-R Int : 000 ms QRS Dur : 098 ms QT Int : 290 ms P-R-T Axes : 000 058 074 degrees QTc Int : 403 ms Atrial fibrillation with rapid ventricular response with premature ventricular or aberrantly conducte d complexes Nonspecific T wave abnormality Abnormal ECG When compared with ECG of 10-MAY-2022 20:16, (unconfirmed) No significant change was found Confirmed by Praful Mcleod ([id number]) on 05/11/2022 2:12:40 PM Referred By: Aly Steiner Confirmed By:Praful Mcleod
--- NOTE | 2022-05-11 14:33 | Hospitalist Progress Note ---
Date of Service May 11, 2022 Assessment & Plan (1) Afib: Plan 46-year-old male with PMH of morbid obesity, HTN, newly diagnosed A. fib, aortic valve sclerosis, RBBB, alcohol use, fatty liver, left biceps tendon rupture from work-related injury who was recently admitted in March 2022 for newly diagnosed A. fib with RVR and was discharged on Eliquis and metoprolol presented 05/10 for cardioversion but had missed his dose of Eliquis on 05/09 therefore cardiology recommended he be admitted to load him with Eliquis for 2 days, repeat echo/SID and possible cardioversion. He is being managed for the following: A. fib RVR H/o Left atrial appendage thrombus noted in 04/08 echo Cardiomyopathy Telemetry monitoring, cardiology on board Metoprolol dose being uptitrated per cardiology, patient on sotalol Continue with Eliquis Patient still with A. fib RVR, heart rate mostly in the 110s Patient without chest pain or dizziness or other cardiac symptoms. N.p.o. midnight, possible SID and cardioversion tomorrow. Monitor and replete electrolytes Morbid obesity with BMI of 40-44.9 Prediabetes BMI of 43.3, lifestyle modification including benefits of long-term exercise, benefits of healthy diet and benefits of cutting down on alcohol drinking discussed with the patient. Patient seemed motivated. A1c of 5.7 this admission. Patient will need repeat A1c in 3 months and further evaluation/management per PCP as an outpatient after trying lifestyle modification. Fatty liver Alcohol dependence Patient drinks at least 3 beers daily, 8 beers on weekend, encouraged to cut down on drinking, patient seem motivated. Patient already is started to cut down on drinking since last 6 months, congratulated. DVT prophylaxis: Patient on Eliquis CODE: Full code Dispo: From home, likely to remain in the hospital x 1-2 days Admission and Anticipated Discharge Date Admission Date: May 10, 2022 Subjective Patient seen and examined at bedside for follow-up of A. fib RVR and cardiomyopathy. Next Patient was sitting up in chair, on room air, watching television, reports eating okay and moving bowels okay, denies any acute events overnight. Patient denies any headache/dizziness/chest pain/palpitations/belly pain/other review of symptoms. Patient counseled in the line of obesity and weight reduction, benefits of exercise in the long-term, benefits of decreasing or quitting drinking altogether. Physical Exam Physical Exam: GENERAL: Alert and oriented x3. NAD, on RA. Morbidly obese. HEENT: No pallor, no icterus. Pupils equal, round and reactive to light. Oral mucosa moist. NECK: No JVD, no neck masses. HEART: S1 and S2 heard. Irregular rate and rhythm, tachy. No murmur, no gallop. RESPIRATORY SYSTEM: Normal AP diameter. No accessory muscle use. No wheezing, no crackles. ABDOMEN: Soft, bowel sounds present, nontender, no distention. CENTRAL NERVOUS SYSTEM: No facial droop. Speech is clear. Obeys simple commands. Moves extremities. EXTREMITIES: 1+ BLE edema, no erythema seen. Results & Data Results & Data ([facility]) Vital Signs (Past 12 Hours) Vital Signs Temp Pulse Pulse Resp BP Pulse Ox O2 Del Method 05/11/22 11:42 36.8 C 119 H 18 133/96 96 Room Air 05/11/22 08:28 122 H 21 135/88 05/11/22 07:04 36.9 C 115 H 18 120/91 96 Room Air 05/11/22 07:00 106 H 05/11/22 04:59 36.7 C 118 H 22 119/90 97 Room Air
[2022-05-11] MEDS: METOPROLOL SUCC 50MG EXT REL TAB PO SCH (20:27)
[2022-05-12 06:42] LABS: BUN Creatinine Ratio 19.2 (10-20); Calcium 8.6 mg/dl (8.5-10.1); Creatinine Clr Calc Pharmacy 161.5 ml/min; Est GFR (African American) 123.7 ml/min; Est GFR (Non-African American) 106.7 ml/min; Magnesium 1.9 mg/dl (1.7-2.4); Potassium 3.7 mmol/L (3.5-5.1)
[2022-05-12] MEDS ORDERED: PROPOFOL IV EMULSION 10 MG/ML 20 ML VIAL IV ONE (07:17)
[2022-05-12] MEDS ORDERED: LIDOCAINE 2% 2 ML VIAL/AMP(20MG/ML) INFIL ONE (07:17)
--- NOTE | 2022-05-12 07:17 | Anesthesiology Consultation ---
Date of Service May 12, 2022 Assessment & Plan (1) Encounter for pre-operative examination: Chart Review Chart Review: Acceptable Risk for Surgery and Patient NOT seen in Pre Admission Testing Consults Requested none History Surgery Operation Date: 05/12/22 08:00 Proposed Procedures p Transesophageal Echo w/Anesthesia - Herb Jaimes DO s Cardioversion Marketing Designer w/Anesthesia - Herb Jaimes DO Height/Weight Height: 5 ft 10 in Weight: 137 kg Allergies Allergy/AdvReac Type Severity Reaction Status Date / Time lisinopril AdvReac Unknown Cough Verified 05/09/22 13:41 Medications Home Medications Medication Instructions Recorded Confirmed Last Taken cholecalciferol (vitamin D3) 25 0 mcg PO DAILY 04/05/22 05/09/22 04/05/22 mcg (1,000 unit) capsule (Vitamin D3) losartan 25 mg tablet 25 mg PO QAM 04/05/22 05/09/22 Unknown vitamin E 268 mg (400 unit) capsule 0 unit PO DAILY 04/05/22 05/09/22 04/05/22 apixaban 5 mg tablet (Eliquis) 5 mg PO BID #60 tabs 04/08/22 05/09/22 05/09/22 metoprolol succinate 25 mg 75 mg PO BID #90 tabs 04/09/22 05/09/22 Unknown tablet,extended release 24 hr multivitamin 1 cap PO DAILY 05/09/22 05/09/22 Unknown Active Medications Generic Name Dose Route Start Last Admin Trade Name Freq PRN Reason Stop Dose Admin Apixaban 5 mg 05/10/22 09:00 05/11/22 20:56 Apixaban 5 Mg Tablet PO 06/09/22 08:59 5 mg BID TRACEE Administration Losartan Potassium 25 mg 05/10/22 09:00 05/11/22 10:30 Losartan Potassium 25 Mg Tab PO 06/09/22 08:59 25 mg QAM TRACEE Administration Metoprolol Succinate 100 mg 05/11/22 21:00 05/11/22 20:27 Metoprolol Succ 50mg Ext Rel Tab PO 06/10/22 20:59 100 mg BID TRACEE Administration Multivitamins 1 tab 05/10/22 12:45 05/11/22 08:26 Multivitamin Tab PO 06/09/22 12:44 1 tab DAILY TRACEE Administration Sotalol HCl 80 mg 05/10/22 12:30 05/11/22 20:29 Sotalol Hcl 80 Mg Tab PO 06/09/22 12:29 80 mg BID TRACEE Administration Past Medical History Medical History Afib afib with RVR dx 03/2022, left atrial appendage thrombus detected on echo d/c on Eliquis and metoprolol Alcohol dependence Cardiomyopathy dilated, EF 35-40%, suspected to be tachycardia induced per OR and [facility] cardio records Fatty liver History of COVID-19 10 WKS AGO, + HOME TEST - RUNNY NOSE/DRY COUGH/FATIGUE NO CURRENT S/S Hypertension Long QT syndrome Snores SAYS HE STOPS BREATHING IN HIS SLEEP/ SLEEP APNEA TEST SCHEDULED JUL 2022 Thrombus of left atrial appendage plan for repeat trial of SID guided cardioversion after 4 weeks of anticoagulation per [facility] cardio chart Past Family History Family History Uncle Family history of colon cancer Father Heart disease Hypertension Myocardial infarction age 55 Other Family history of diabetes mellitus Past Surgical History Surgical History History of hernia surgery A BABY History of surgery BICEP TENDON REPAIR, LEFT Social History Smoking Status: Never smoker Do You Dip or Chew Tobacco: No Hx Alcohol Use: Yes Alcohol type: beer alcohol intake frequency: 0-2 drinks per day Hx Substance Use: No substance use type: does not use Physical Exam Vital Signs Last Vital Signs Temp 97.7 F 05/12/22 04:36 Pulse 124 H 05/12/22 04:36 Resp 18 05/12/22 04:36 BP 102/82 05/12/22 04:36 Pulse Ox 92 05/12/22 04:36 O2 Del Method 05/12/22 04:36 Testing Laboratory Results 05/11/22 04:33 05/12/22 05:29 Hemoglobin A1c 5.7 % (4.5-5.6) H 05/11/22 04:33
[2022-05-12] MEDS ORDERED: BENZOCAINE/TETRACAIN/BUTAM 50 APPLN/5 GM CAN EXT ONE (07:32)
[2022-05-12] MEDS: SOTALOL HCL 80 MG TAB PO SCH ×2 (08:45→21:40)
[2022-05-12] MEDS: METOPROLOL SUCC 50MG EXT REL TAB PO SCH ×2 (08:45→21:40)
[2022-05-12] MEDS: MULTIVITAMIN TAB PO SCH (08:45)
[2022-05-12] MEDS: APIXABAN 5 MG TABLET PO SCH ×2 (08:45→21:40)
--- NOTE | 2022-05-12 09:00 | Anesthesiology Progress Note ---
Date of Service May 12, 2022 Anesthesia Post Procedure Vital Signs Vital Signs: Temp Pulse Pulse Resp BP Pulse Ox O2 Del Method 05/12/22 08:42 98.8 F 149 H 21 131/92 98 Room Air 05/12/22 08:15 131 H 18 119/94 96 Nasal Cannula 05/12/22 08:00 140 H 18 126/96 99 Nasal Cannula 05/12/22 04:36 97.7 F 124 H 18 102/82 92 Room Air 05/11/22 23:22 97.7 F 114 H 18 114/91 95 Room Air 05/11/22 23:21 120 H 05/11/22 20:04 97.7 F 127 H 18 109/91 92 Room Air 05/11/22 16:00 116 H 05/11/22 17:36 98.2 F 135 H 18 124/82 96 Room Air 05/11/22 11:42 98.2 F 119 H 18 133/96 96 Room Air Transfer of Care Handoff Completed per policy Notes Mental Status: alert / awake / arousable and participated in evaluation Patient Amnestic to Procedure: Yes Nausea / Vomiting: adequately controlled Pain: adequately controlled Airway Patency, RR, SpO2: stable & adequate BP & HR: stable & adequate Hydration State: stable & adequate Anesthetic Complications: no major complications apparent and Pt Satisfied with anesthetic care
[2022-05-12] MEDS: LOSARTAN POTASSIUM 25 MG TAB PO SCH (10:14)
[2022-05-12] MEDS ORDERED: dilTIAZem HCL 30 MG TAB PO ONE (11:02)
--- NOTE | 2022-05-12 11:07 | Cardiology Progress Note ---
Date of Service May 12, 2022 Assessment & Plan (1) Cardiomyopathy: (2) Atrial fibrillation with rapid ventricular response: Plan The patient was to have a transesophageal echocardiogram followed by cardioversion this morning. The transesophageal echocardiogram was completed and does show continued thrombus in the left atrial appendage. The thrombus was decreased in size from the previous study but was still present so the cardioversion was canceled. There is a question of some compliance issues regarding the patient's medications after his last discharge especially the Eliquis. I think it is best that we continue the Eliquis for several more weeks and then have the patient come in electively for a repeat transesophageal echocardiogram and cardioversion. Currently I would continue the metoprolol at 100 mg twice daily and sotalol at 80 mg twice daily. The patient still has high heart rates currently in the 120s and therefore I have added diltiazem 30 mg 3 times daily. I would like to have better heart rate control prior to discharging the patient. Otherwise he is doing well. I spoke to both he and his . Admission and Anticipated Discharge Date Admission Date: May 10, 2022 Subjective The patient is resting comfortably. Answered all questions. Review of Systems Review of Systems: Review of Systems: See HPI for pertinent positives. All other 10 point review of systems are negative. Physical Exam Physical Exam: General: no acute distress and stated age Head: normocephalic, no masses, lesions, tenderness or abnormalities Eyes: conjunctiva are pink and non-injected, sclera clear Neck: supple, no adenopathy, no bruits, normal jugular venous pulse, no hepatojugular reflux Chest: normal shape and normal respiratory effort Lungs: clear to auscultation and percussion Cardiac Exam: - irregular rate & rhythm, no murmurs gallops or rubs - normal S1, normal S2 Pulses: 2(+) throughout Abdomen: abdomen soft, non-tender, no abnormal masses and no hepatosplenomegaly Musculoskeletal: no gait disturbance, no joint inflammation, no deforming arthritis Extremities: no edema and no cyanosis Neuro: grossly normal exam Results & Data ([facility]) Vital Signs (Past 12 Hours) Vital Signs Temp Pulse Pulse Resp BP BP Pulse Ox 05/12/22 09:15 131 H 16 97 05/12/22 09:15 132/96 05/12/22 09:01 139 H 17 96 05/12/22 09:01 127/91 05/12/22 09:00 122 H 20 96 05/12/22 08:45 140 H 19 95 05/12/22 08:45 126/94 05/12/22 08:41 131/92 05/12/22 08:41 143 H 19 96 05/12/22 08:39 127 H 32 H 05/12/22 06:45 114 H 28 H 05/12/22 09:16 128 H 05/12/22 08:42 37.1 C 149 H 21 131/92 98 05/12/22 08:15 131 H 18 119/94 96 05/12/22 08:00 140 H 18 126/96 99 05/12/22 04:36 36.5 C 124 H 18 102/82 92 05/11/22 23:22 36.5 C 114 H 18 114/91 95 05/11/22 23:21 120 H O2 Del Method 05/12/22 09:15 05/12/22 09:15 05/12/22 09:01 05/12/22 09:01 05/12/22 09:00 05/12/22 08:45 05/12/22 08:45 05/12/22 08:41 05/12/22 08:41 05/12/22 08:39 05/12/22 06:45 05/12/22 09:16 05/12/22 08:42 Room Air 05/12/22 08:15 Nasal Cannula 05/12/22 08:00 Nasal Cannula 05/12/22 04:36 Room Air 05/11/22 23:22 Room Air 05/11/22 23:21
[2022-05-12] MEDS: dilTIAZem HCL 30 MG TAB PO SCH ×2 (14:26→21:40)
--- NOTE | 2022-05-12 19:04 | Hospitalist Progress Note ---
Date of Service May 12, 2022 Assessment & Plan (1) Afib: Plan 46-year-old male with PMH of morbid obesity, HTN, newly diagnosed A. fib, aortic valve sclerosis, RBBB, alcohol use, fatty liver, left biceps tendon rupture from work-related injury who was recently admitted in March 2022 for newly diagnosed A. fib with RVR and was discharged on Eliquis and metoprolol presented 05/10 for cardioversion but had missed his dose of Eliquis on 05/09 therefore cardiology recommended he be admitted to load him with Eliquis for 2 days, repeat echo/SID and possible cardioversion. He is being managed for the following: A. fib RVR H/o Left atrial appendage thrombus noted in 04/08 echo Cardiomyopathy Telemetry monitoring, cardiology on board. SID on 05/12 w/ persistence of left atrial appendage thrombus. Metoprolol and sotalol dose being uptitrated per cardiology, Pt started on diltiazem Continue with Eliquis Patient still with A. fib RVR, heart rate mostly in the 110-120s Patient without chest pain or dizziness or other cardiac symptoms. Monitor and replete electrolytes F/u cardio as OP after several weeks of eliquis again for further discussion on cardioversion/SID in future. Morbid obesity with BMI of 40-44.9 Prediabetes BMI of 43.3, lifestyle modification including benefits of long-term exercise, benefits of healthy diet and benefits of cutting down on alcohol drinking discussed with the patient. Patient seemed motivated. A1c of 5.7 this admission. Patient will need repeat A1c in 3 months and further evaluation/management per PCP as an outpatient after trying lifestyle modification. Pt aware. Fatty liver Alcohol dependence Patient drinks at least 3 beers daily, 8 beers on weekend, encouraged to cut down on drinking, patient seem motivated. Patient already is started to cut down on drinking since last 6 months, congratulated. DVT prophylaxis: Patient on Eliquis CODE: Full code Dispo: From home, likely to remain in the hospital x 1-2 days pending HR control. Admission and Anticipated Discharge Date Admission Date: May 10, 2022 Subjective Patient seen and examined at bedside for follow-up of A. fib RVR and cardiomyopathy. Patient was sitting up in chair, on room air, watching television, had SID in AM with persistence of left atrial appendage thrombus, diet resumed, reports eating okay and moving bowels okay, denies any acute events overnight. Patient denies any headache/dizziness/chest pain/palpitations/belly pain/other review of symptoms. Physical Exam Physical Exam: GENERAL: Alert and oriented x3. NAD, on RA. Morbidly obese. HEENT: No pallor, no icterus. Pupils equal, round and reactive to light. Oral mucosa moist. NECK: No JVD, no neck masses. HEART: S1 and S2 heard. Irregular rate and rhythm, tachy. No murmur, no gallop. RESPIRATORY SYSTEM: Normal AP diameter. No accessory muscle use. No wheezing, no crackles. ABDOMEN: Soft, bowel sounds present, nontender, no distention. CENTRAL NERVOUS SYSTEM: No facial droop. Speech is clear. Obeys simple commands. Moves extremities. EXTREMITIES: 1+ BLE edema, no erythema seen. Results & Data Results & Data ([facility]) Vital Signs (Past 12 Hours) Vital Signs Temp Pulse Pulse Resp BP BP Pulse Ox 05/12/22 16:00 112 H 05/12/22 14:10 105 H 31 H 05/12/22 14:10 138/96 05/12/22 14:00 98 H 24 05/12/22 13:50 119 H 25 H 05/12/22 13:40 118 H 14 05/12/22 13:30 107 H 12 05/12/22 13:20 119 H 22 05/12/22 13:10 108 H 21 05/12/22 13:00 113 H 13 05/12/22 12:50 122 H 28 H 05/12/22 12:40 120 H 21 05/12/22 12:30 130 H 17 05/12/22 12:20 122 H 24 05/12/22 12:10 123 H 20 05/12/22 12:00 123 H 18 05/12/22 11:50 127 H 30 H 05/12/22 11:41 125 H 20 05/12/22 11:30 122 H 12 98 05/12/22 11:20 137 H 18 96 05/12/22 11:10 121 H 16 97 05/12/22 11:00 133 H 23 95 05/12/22 10:50 130 H 18 97 05/12/22 10:40 122 H 13 96 05/12/22 10:31 111/84 05/12/22 10:31 123 H 12 97 05/12/22 10:30 124 H 25 H 97 05/12/22 10:20 128 H 30 H 05/12/22 10:15 112/95 05/12/22 10:15 121 H 19 97 05/12/22 10:10 130 H 20 96 05/12/22 10:00 133 H 31 H 96 05/12/22 10:00 114/89 05/12/22 09:50 146 H 23 97 05/12/22 09:45 114/90 05/12/22 09:45 136 H 29 H 95 05/12/22 09:40 122 H 18 96 05/12/22 09:30 134 H 27 H 97 05/12/22 09:30 130/103 H 05/12/22 09:20 138 H 22 95 05/12/22 09:15 131 H 16 97 05/12/22 09:15 132/96 05/12/22 09:01 139 H 17 96 05/12/22 09:01 127/91 05/12/22 09:00 122 H 20 96 05/12/22 08:45 140 H 19 95 05/12/22 08:45 126/94 05/12/22 08:41 131/92 05/12/22 08:41 143 H 19 96 05/12/22 08:39 127 H 32 H 05/12/22 09:16 128 H 05/12/22 08:42 37.1 C 149 H 21 131/92 98 05/12/22 08:15 131 H 18 119/94 96 05/12/22 08:00 140 H 18 126/96 99 O2 Del Method 05/12/22 16:00 05/12/22 14:10 05/12/22 14:10 05/12/22 14:00 05/12/22 13:50 05/12/22 13:40 05/12/22 13:30 05/12/22 13:20 05/12/22 13:10 05/12/22 13:00 05/12/22 12:50 05/12/22 12:40 05/12/22 12:30 05/12/22 12:20 05/12/22 12:10 05/12/22 12:00 05/12/22 11:50 05/12/22 11:41 05/12/22 11:30 05/12/22 11:20 05/12/22 11:10 05/12/22 11:00 05/12/22 10:50 05/12/22 10:40 05/12/22 10:31 05/12/22 10:31 05/12/22 10:30 05/12/22 10:20 05/12/22 10:15 05/12/22 10:15 05/12/22 10:10 05/12/22 10:00 05/12/22 10:00 05/12/22 09:50 05/12/22 09:45 05/12/22 09:45 05/12/22 09:40 05/12/22 09:30 05/12/22 09:30 05/12/22 09:20 05/12/22 09:15 05/12/22 09:15 05/12/22 09:01 05/12/22 09:01 05/12/22 09:00 05/12/22 08:45 05/12/22 08:45 05/12/22 08:41 05/12/22 08:41 05/12/22 08:39 05/12/22 09:16 05/12/22 08:42 Room Air 05/12/22 08:15 Nasal Cannula 05/12/22 08:00 Nasal Cannula
[2022-05-13 06:58] LABS: BUN Creatinine Ratio 15.9 (10-20); Calcium 8.7 mg/dl (8.5-10.1); Creatinine Clr Calc Pharmacy 143.2 ml/min; Est GFR (African American) 117.7 ml/min; Est GFR (Non-African American) 101.6 ml/min
[2022-05-13] MEDS ORDERED: dilTIAZem ER 120 MG CAPCR PO SCH (09:00)
--- NOTE | 2022-05-13 09:22 | Cardiology Progress Note ---
Date of Service May 13, 2022 Assessment & Plan (1) Cardiomyopathy: (2) Atrial fibrillation with rapid ventricular response: Plan The patient is tolerating his medications. I changed his diltiazem over to long-acting this morning. He should be discharged on his current medications. I will arrange follow-up with our clinic. The plan will be to see him in several weeks and reschedule a follow-up SID and cardioversion. Admission and Anticipated Discharge Date Admission Date: May 10, 2022 Subjective The patient had an uneventful night. He has been up and walking around without difficulty. No shortness of breath or dizziness. Review of Systems Review of Systems: Review of Systems: See HPI for pertinent positives. All other 10 point review of systems are negative. Physical Exam Physical Exam: General: no acute distress and stated age Head: normocephalic, no masses, lesions, tenderness or abnormalities Eyes: conjunctiva are pink and non-injected, sclera clear Neck: supple, no adenopathy, no bruits, normal jugular venous pulse, no hepatojugular reflux Chest: normal shape and normal respiratory effort Lungs: clear to auscultation and percussion Cardiac Exam: - irregular rate & rhythm, no murmurs gallops or rubs - normal S1, normal S2 Pulses: 2(+) throughout Abdomen: abdomen soft, non-tender, no abnormal masses and no hepatosplenomegaly Musculoskeletal: no gait disturbance, no joint inflammation, no deforming arthritis Extremities: no edema and no cyanosis Neuro: grossly normal exam Results & Data ([facility]) Vital Signs (Past 12 Hours) Vital Signs Temp Pulse Pulse Resp BP Pulse Ox O2 Del Method 05/13/22 04:00 90 22 05/13/22 02:00 94 H 18 05/12/22 23:37 120 H 05/12/22 23:14 36.6 C 112 H 18 108/75 95 Room Air Laboratory Results Laboratory Results - last 24 hr 05/13/22 05:36 Sodium 138 Potassium 4.0 Chloride 105 Carbon Dioxide 28 Anion Gap 5 BUN 14 Creatinine 0.88 Est Cr Clr Drug Dosing 143.2 Est GFR ( Amer) 117.7 Est GFR (Non-Af Amer) 101.6 BUN/Creatinine Ratio 15.9 Glucose 87 Calcium 8.7 Magnesium 2.0 Medications Administered Current Inpatient Medications Acetaminophen (Acetaminophen 325 Mg Tab) 650 mg PO Q4H PRN PRN Reason: Pain or Fever Stop: 06/09/22 11:02 Apixaban (Apixaban 5 Mg Tablet) 5 mg PO BID [facility] Stop: 06/09/22 08:59 Last Admin: 05/12/22 21:40 Dose: 5 mg Diltiazem HCl (Diltiazem Er 120 Mg Capcr) 120 mg PO QAM [facility] Stop: 06/12/22 08:59 Losartan Potassium (Losartan Potassium 25 Mg Tab) 25 mg PO QAM [facility] Stop: 06/09/22 08:59 Last Admin: 05/12/22 10:14 Dose: 25 mg Metoprolol Succinate (Metoprolol Succ 50mg Ext Rel Tab) 100 mg PO BID [facility] Stop: 06/10/22 20:59 Last Admin: 05/12/22 21:40 Dose: 100 mg Multivitamins (Multivitamin Tab) 1 tab PO DAILY [facility] Stop: 06/09/22 12:44 Last Admin: 05/12/22 08:45 Dose: 1 tab Ondansetron HCl (Ondansetron Inj 2 Mg/Ml 2 Ml Vial) 4 mg IV Q4H PRN PRN Reason: Nausea And Vomiting Stop: 06/09/22 08:43 Sotalol HCl (Sotalol Hcl 80 Mg Tab) 80 mg PO BID [facility] Stop: 06/09/22 12:29 Last Admin: 05/12/22 21:40 Dose: 80 mg
[2022-05-13] MEDS: METOPROLOL SUCC 50MG EXT REL TAB PO SCH (09:29)
[2022-05-13] MEDS: SOTALOL HCL 80 MG TAB PO SCH (09:29)
[2022-05-13] MEDS: APIXABAN 5 MG TABLET PO SCH (09:29)
[2022-05-13] MEDS: dilTIAZem HCL 30 MG TAB PO SCH (09:29)
[2022-05-13] MEDS: MULTIVITAMIN TAB PO SCH (09:29)
[2022-05-13] MEDS: LOSARTAN POTASSIUM 25 MG TAB PO SCH (10:33)
--- NOTE | 2022-05-13 13:38 | Discharge Summary ---
Date of Service May 13, 2022 Admission HPI Per Admitting Provider This is a 46 yo M with PMHx of hypertension, newly diagnosed A. fib, aortic valve sclerosis, RBBB, alcohol use, fatty liver, morbid obesity with a BMI of 43.0, and left biceps tendon rupture from work related injury. Approximately 1 month ago in March 2022 he was admitted here to [facility] with newly diagnosed A. fib with RVR, a transthoracic echo was done on 04/08/22 and the patient was found to have a left atrial appendage thrombus, therefore he was discharged at that time with anticoagulation on Eliquis and metoprolol for rate control. He has tentatively been scheduled for an electrical cardioversion however ran out of his prescription and missed the dose x 24 hours on 05/09, therefore cardiology is recommending he be admitted to load him with Eliquis x 2 days, monitor his heart rate with metoprolol succinate, repeat echo and then proceed with cardioversion. His metoprolol has been increased to 100 mg twice daily with possibility of transitioning to sotalol pending how he responds, and also continuing losartan 25 mg daily. The patient and his are present in the [facility]. He states that he is doing well today, denies any issues with palpitations, flutter, lightheadedness, dizziness chest pain in the past month. He reports feeling shortness of breath with physical exertion as he had a left bicep tendon tear- approximately about a month ago and had been out of work. 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 He is hopeful to return to work next week sometime. Patient is tolerating diet without any difficulty, and reports that he drinks approximately 3 beers daily 5 times per week, and then on weekends he drinks approximately 8 daily. Discussion was held on reduction of alcohol consumption at bedside and encouraged. We also discussed exercise, weight loss of goal of 10 to 20 pounds within the next 3 months as he reports being tested for CPAP in next few months. He does not wear any oxygen or CPAP mask at baseline or at bedtime. Admission Exam Per Admitting Provider General: awake, alert, no apparent distress, obese with BMI of 43.0 Head: Normocephalic, atraumatic ENT: PERRL, EOMI, no pharyngeal exudate, mucous membranes moist Chest: Clear to auscultation, on room air, no adventitious breath sounds Cardiac: Regular rate and rhythm, no murmur, no JVD, normal peripheral pulses, good capillary refill Abdominal: NABS x 4 quadrants, soft, nondistended, nontender to palpation, no re bound or guarding Extremities: Normal inspection, no peripheral edema or erythema, calfs nontender to palpation Psych: Normal mood and affect Neuro: AAO x 3, strength intact bilaterally and rated 5/5, no motor deficits, speech is clear, no peripheral sensory deficits Principal Diagnosis A. fib RVR Left atrial appendage thrombus Alcohol dependence Morbid obesity Prediabetes Discharge Exam GENERAL: Alert and oriented x3. NAD, on RA. Morbidly obese. HEENT: No pallor, no icterus. Pupils equal, round and reactive to light. Oral mucosa moist. NECK: No JVD, no neck masses. HEART: S1 and S2 heard. Irregular rate and rhythm, tachy. No murmur, no gallop. RESPIRATORY SYSTEM: Normal AP diameter. No accessory muscle use. No wheezing, no crackles. ABDOMEN: Soft, bowel sounds present, nontender, no distention. CENTRAL NERVOUS SYSTEM: No facial droop. Speech is clear. Obeys simple commands. Moves extremities. EXTREMITIES: 1+ BLE edema, no erythema seen. Discharge Data Allergies Allergy/AdvReac Type Severity Reaction Status Date / Time lisinopril AdvReac Unknown Cough Verified 05/09/22 13:41 Consultations 05/10/22 11:03 Consult Cardiology Routine Procedures Performed Operation Date: 05/12/22 08:00 Actual Procedures s Echo Color Flow - Herb Jaimes DO s Echo Doppler Complete - Herb Jaimes DO p Echo Transesophageal - Herb Jaimes DO Hospital Course (1) Afib: Plan 46-year-old male with PMH of morbid obesity, HTN, newly diagnosed A. fib, aortic valve sclerosis, RBBB, alcohol use, fatty liver, left biceps tendon rupture from work-related injury who was recently admitted in March 2022 for newly diagnosed A. fib with RVR and was discharged on Eliquis and metoprolol presented 05/10 for cardioversion but had missed his dose of Eliquis on 05/09 therefore cardiology recommended he be admitted to load him with Eliquis for 2 days, repeat echo/SID and possible cardioversion. He was managed for the following: A. fib RVR H/o Left atrial appendage thrombus noted in 04/08 echo, persistence thrombus on 05/12/22 ECHO Cardiomyopathy Telemetry monitoring, cardiology on board. SID on 05/12 w/ persistence of left a trial appendage thrombus. Cardiology evaluated, metoprolol dose has been uptitrated, patient started on sotalol and Cardizem. Patient to continue with Eliquis, maintain follow-up with cardiology as an outpatient for further discussion on the management of his A. fib RVR/cardioversion in future. Patient without chest pain or dizziness or other cardiac symptoms. Patient to get blood work CBC and CMP and magnesium level done in a week time and have the results forwarded to his primary care physician Morbid obesity with BMI of 40-44.9 Prediabetes BMI of 43.3, lifestyle modification including benefits of long-term exercise, benefits of healthy diet and benefits of cutting down on alcohol drinking discussed with the patient. Patient seemed motivated. A1c of 5.7 this admission. Patient will need repeat A1c in 3 months and further evaluation/management per PCP as an outpatient after trying lifestyle modification. Pt aware. Fatty liver Alcohol dependence Patient drinks at least 3 beers daily, 8 beers on weekend, encouraged to cut down on drinking, patient seem motivated. Patient already is started to cut down on drinking since last 6 months, congratulated. DVT prophylaxis: Patient on Eliquis CODE: Full code Patient being discharged home with following instruction at the point of discharge: Follow-up with your primary care physician within a week time. Get your blood work CBC, Mg and CMP done in a week time and have the results forwarded to her primary care physician. Follow-up with your cardiology as an outpatient for further discussion/management of your A. fib RVR. You have been diagnosed with prediabetes with A1c of 5.7 this admission, advise to continue with healthy diet, cutting down on alcohol and incorporating healthy lifestyle discussed at the bedside. You will need to follow-up with your PCP in 3 months to get repeat A1c level and have further discussion with your PCP. Cardiology evaluated you while in hospital, your metoprolol dose has been increased, you are put on sotalol and Cardizem. Continue to take your Eliquis. Take your medications as prescribed. Total Time Total Time Spent Total Time Spent (In Minutes): 35 Discharge Plan Discharge Items Patient Disposition: Home - Self-Care Reason For Visit: Atrial Fibrillation Discharge Diagnosis: A. fib RVR Left atrial appendage thrombus Alcohol dependence Morbid obesity Prediabetes Activity: Resume your previous activity Non-emergency contact: Primary Care Provider Call non-emergency contact if: you have any medication questions, your symptoms worsen and your temperature is above 101 Follow-up/Referrals: Aly Steiner DO [Yoga Teacher] - (Date & Time 06/08/2022 11:00 AM Provider Aly Steiner DO Department Cardiology, [facility] ) Yuki Correia MD [Primary Care Provider] - (Date & Time 05/18/2022 11:10 AM Provider Nicole Vivar DO Department Family Medicine [facility] ) Diet: Heart Healthy Addtl Attending Provider Instructions: Follow-up with your primary care physician within a week time. Get your blood work CBC, Mg and CMP done in a week time and have the results forwarded to her primary care physician. Follow-up with your cardiology as an outpatient for further discussion/management of your A. fib RVR. You have been diagnosed with prediabetes with A1c of 5.7 this admission, advise to continue with healthy diet, cutting down on alcohol and incorporating healthy lifestyle discussed at the bedside. You will need to follow-up with your PCP in 3 months to get repeat A1c level and have further discussion with your PCP. Cardiology evaluated you while in hospital, your metoprolol dose has been increased, you are put on sotalol and Cardizem. Continue to take your Eliquis. Take your medications as prescribed. Pending Studies at Discharge: No Stand-Alone Forms: My [facility], Smoking Cessation Medications and DC Order Prescriptions: New metoprolol succinate 50 mg Tablet Extended Release 24 Hr 100 mg PO BID Qty: 120 0RF diltiazem HCl [Taztia XT] 120 mg Capsule,Extended Release 24 Hr 120 mg PO QAM Qty: 30 0RF sotalol 80 mg Tablet 80 mg PO BID Qty: 60 0RF Continued vitamin E 400 unit Capsule 0 unit PO DAILY Rx Instructions: PT UNSURE OF STRENGTH cholecalciferol (vitamin D3) [Vitamin D3] 25 mcg (1,000 unit) Capsule 0 mcg PO DAILY Rx Instructions: PT UNSURE OF STRENGTH multivitamin Capsule 1 cap PO DAILY losartan 25 mg tablet 25 mg PO QAM Qty: 30 0RF Rx Instructions: DID NOT START YET, "JUST ORDERED 04/05/22".---PT WAS ON LISINOPRIL 20 MG, STOPPED BY . Eliquis 5 mg Tablet 5 mg PO BID Qty: 60 0RF Discontinued metoprolol succinate 25 mg Tablet Extended Release 24 Hr 75 mg PO BID Qty: 90 0RF Discharge Orders: Discharge Order (Routine); Ordered 05/13/22 Ordered By: Rossana Conrad Admission Data Admit Date/Time: 05/10/22 12:03 Attending Provider: Herb Jaimes Admit Provider: Rossana Conrad Primary Care Provider: Yuki Correia Other Providers: Herb Jaimes ; Kojo Dorantes
== END 2022-05-13 14:10 | disposition home or self-care (01) | DRG 309 ==
LOC: CC 06:03 → 1E 12:03
DX: I42.0 Dilated cardiomyopathy; Z79.01 Long term (current) use of anticoagulants; Z82.49 Family history of ischemic heart disease and other diseases of the circulatory system; I10 Essential (primary) hypertension; Z91.138 Patient's unintentional underdosing of medication regimen for other reason; R73.03 Prediabetes; E66.01 Morbid (severe) obesity due to excess calories; Z88.8 Allergy status to other drugs, medicaments and biological substances; I45.10 Unspecified right bundle-branch block; Z86.16 Personal history of COVID-19; Z83.3 Family history of diabetes mellitus; F10.20 Alcohol dependence, uncomplicated; Z68.41 Body mass index [BMI] 40.0-44.9, adult; I51.3 Intracardiac thrombosis, not elsewhere classified; Z79.899 Other long term (current) drug therapy; K76.0 Fatty (change of) liver, not elsewhere classified; I48.19 Other persistent atrial fibrillation